=== PATIENT | male | born 1950 | race Caucasian/White ===

== ENCOUNTER 2016-10-30 05:04 | Inpatient (IN) | payer BC, OTHER ==
[2016-10-05 11:55] VITALS: BMI 28.0
--- NOTE | 2016-10-05 12:24 | PAT Medication Instructions ---
Service Date Oct 05, 2016. Current Home Medication List Aspirin (Aspirin *), 325 MG PO noon Atorvastatin (Lipitor), 10 MG PO HS Cholecalciferol (Vitamin D3), 1 TAB PO QAM Finasteride (Proscar), 5 MG PO QAM Lisinopril (Prinivil), 10 MG PO QAM Meloxicam (Mobic), 7.5 MG PO QAM Multivitamin (Multivitamin), 1 TAB PO QAM Sildenafil Citrate (Viagra), 100 MG PO PRN Medication Instructions For Your Scheduled Surgery - Check with surgeon for instructions: Aspirin (Aspirin *), 325 MG PO noon Meloxicam (Mobic), 7.5 MG PO QAM - Hold the following medications the morning of surgery: Sildenafil Citrate (Viagra), 100 MG PO PRN Multivitamin (Multivitamin), 1 TAB PO QAM Finasteride (Proscar), 5 MG PO QAM Lisinopril (Prinivil), 10 MG PO QAM Cholecalciferol (Vitamin D3), 1 TAB PO QAM - Take the following medications as scheduled the night before surgery: Sildenafil Citrate (Viagra), 100 MG PO PRN Atorvastatin (Lipitor), 10 MG PO HS If you have any questions please call us at [phone] or [phone] or [phone]
--- NOTE | 2016-10-05 12:47 | DIAGNOSTIC IMAGING REPORT ---
CHEST PREADMISSION(PA/LAT) CLINICAL HISTORY: 66 years-old Male presenting with preoperative chest x-ray. TECHNIQUE: PA and lateral views of the chest were obtained. COMPARISON: 06/09/2013. FINDINGS: Cardiomediastinal silhouette normal. Lungs and pleural spaces clear. Osseous structures normal. Cholecystectomy clips noted. IMPRESSION: 1. No acute cardiopulmonary disease. Electronically signed by: Michael Saleem M.D. 10/05/2016 12:45 PM Dictated Date/Time: 10/05/2016 12:45 PM
[2016-10-05 12:54] LABS: BASO % 0.2 %; BASO ABS # 0.02 K/uL (0-0.2); COMPLETE YES; EOS % 2.2 %; HEMATOCRIT 44.8 % (42-52); IG% 0.2 %; LYMPH % 28.5 %; LYMPH ABS # 2.68 K/uL (1.2-3.4); MEAN CELL VOLUME 82.2 fL (80-100); MEAN CORPUSCULAR HEMOGLOBIN 28.4 pg (25-34); MEAN CORPUSCULAR HGB CONC 34.6 g/dl (32-36); MEAN PLATELET VOLUME 9.6 fL (7.4-10.4); MONO % 8.2 %; NEUT % 60.7 %; PLATELET COUNT 230 K/uL (130-400); RED BLOOD COUNT 5.45 M/uL (4.7-6.1)
[2016-10-05 12:57] LABS: ESTIMATED AVERAGE GLUCOSE 97 mg/dl; HA1C FLAG Normal (Normal)
[2016-10-05 13:00] LABS: BUN/CREATININE RATIO 14.1 (10-20); CALCIUM 9.9 mg/dl (8.5-10.1); CREATININE 0.83 mg/dl (0.60-1.40); POTASSIUM 4.2 mmol/L (3.5-5.1)
[2016-10-05 13:04] LABS: URINE APPEARANCE CLEAR (CLEAR); URINE BILIRUBIN NEG (NEG); URINE COLOR YELLOW; URINE NITRITE NEG (NEG); URINE SPECIFIC GRAVITY 1.017 (1.000-1.030); UROBILINOGEN NEG (NEG)
[2016-10-05 13:12] LABS: PARTIAL THROMBOPLASTIN RATIO 1.1; PROTHROMBIN TIME (PATIENT) 10.8 SECONDS (9.0-12.0)
[2016-10-05 13:29] LABS: MANUAL MICROSCOPIC REQUIRED? NO; REVIEW REQ? NO
--- NOTE | 2016-10-28 16:51 | History and Physical ---
History & Physical Date Oct 28, 2016. Chief Complaint Left Knee Pain History of Present Illness The patient is a 66 year old male with complaints of Left knee pain. He states it has been going on for some time now. He describes the pain as constant dull ache that is sharp at times. He has tried conservative measures of NSAIDs, cortisone injections and PT with no relief. He would like to proceed with a left TKA. Past Medical/Surgical History PMHx: (1) Hypertension (2) H/O TIA (3) Osteoarthritis (4) GERD PSHx: (1) Cholecystectomy (2) Hernia repair (3) Neck surgery Additional History Hepatic Disease: No Endocrine Disorder: No Kidney Disease: No Hypertension: Yes Heart Disease: No Bleeding Tendencies: No Infectious Diseases: No Allergies Coded Allergies: No Known Drug Allergy (Verified Allergy, Unknown, `, 10/05/16) Home Medications Scheduled Aspirin (Aspirin *), 325 MG PO noon Atorvastatin (Lipitor), 10 MG PO HS Cholecalciferol (Vitamin D3), 1 TAB PO QAM Finasteride (Proscar), 5 MG PO QAM Lisinopril (Prinivil), 10 MG PO QAM Meloxicam (Mobic), 7.5 MG PO QAM Multivitamin (Multivitamin), 1 TAB PO QAM Sildenafil Citrate (Viagra), 100 MG PO PRN Physical Examination Skin: warm/dry, no rash Eyes: normal inspection, EOMI ENT: normal ENT inspection Head: normocephalic, atraumatic Neck: supple, no adenopathy Respiratory/Chest: lungs clear, normal breath sounds Cardiovascular: regular rate, rhythm, no murmur Abdomen / GI: normal bowel sounds, non tender Extremities: normal inspection, + pertinent finding (0-90 degrees ROM. Anterior and medial left knee pain, ligaments intact. ) Neurologic/Psych: alert, oriented x 3 Diagnosis Primary osteoarthritis of left knee Plan of Treatment Patient is scheduled for a left total knee arthroplasty. He has failed conservative therapies that include NSAIDs, PT, and cortisone injections. He would like to proceed with a left total knee arthroplasty. Risks and benefits to surgery were discussed that include but not limited to Pain, DVT, stiffness, Needed for revision surgery, blood loss, blood vessel damage, infection, nerve damage, anesthesia risks, and . He understands these risks and wishes to proceed. All questions were answered to his satisfaction. DVT prophylaxis - ASA 81mg BID Discharge Home with home health.
[~2016-10-30] VITALS: Ht 177.8 cm; Wt 89.5 kg
[2016-10-30] VITALS (10 sets, daily range): BP systolic 107–143; BP diastolic 71–90; PULSE 79–96; TEMP 36.3–36.7; O2SAT 93–97; Ht 177.8 cm; Wt 89.5 kg
[~2016-10-30 05:04] MED LIST: ASPEC325 PO; ATOR10TA88 PO; CHOL1000 PO; FINA5TAB PO; LISI10TA PO; MELO7.5T5 PO; MULT-506 PO; SILD100T PO
[2016-10-30] MEDS ORDERED: ACETAMINOPHEN 500 MG TAB PO SCH (06:00)
[2016-10-30] MEDS ORDERED: LACTATED RINGER'S 1000ML 1,000 ML IV SCH (06:00)
[2016-10-30] MEDS ORDERED: LACTATED RINGER'S 1000ML 500 ML IV SCH (06:00)
[2016-10-30] MEDS ORDERED: LACTATED RINGER'S 1000ML IV SCH (06:00)
[2016-10-30] MEDS ORDERED: CEFAZOLIN 2000 MG/60 ML D5W 60 ML IV SCH (06:00)
[2016-10-30] MEDS ORDERED: ROPIVACAINE 5MG/ML 30 ML 150 MG, BUPIVACAINE/EPINEPHR 0.5% MPF 30 ML, KETOROLAC TROMETH... INFIL SCH ×7 (06:00)
[2016-10-30] MEDS ORDERED: FAMOTIDINE 20 MG TAB PO SCH (06:00)
[2016-10-30] MEDS ORDERED: GABAPENTIN 300 MG CAP PO SCH (06:00)
[2016-10-30] MEDS ORDERED: METOCLOPRAMIDE HCL 10 MG TAB PO SCH (06:00)
[2016-10-30] MEDS ORDERED: CeleBREX 200 MG CAP PO SCH (06:00)
[2016-10-30] MEDS ORDERED: CEFAZOLIN 2000 MG/60 ML D5W IV SCH (06:00)
[2016-10-30] MEDS ORDERED: DEXAMETHASONE 4 MG TAB PO SCH (06:00)
[2016-10-30] MEDS ORDERED: BUPIVACAINE 0.5 % 5 MG/1 ML PF 10ML VIAL ONE (06:22)
[2016-10-30] MEDS: TRANEXAMIC ACID INJ 1,000 MG in SODIUM CHLORIDE 0.9% 100ML 100 ML IV SCH ×2 (06:30→07:00)
[2016-10-30] MEDS ORDERED: BACITRACIN 50000 UNIT VIAL ONE (06:32)
[2016-10-30] MEDS ORDERED: ORTHO JOINT ANESTHETIC ONE (06:32)
[2016-10-30] MEDS ORDERED: POVIDONE-IODINE OP SOLN 30 ML BTL ONE (06:32)
[2016-10-30] MEDS ORDERED: MIDAZOLAM HCL 1 MG/ML 2ML VIAL ONE (06:38)
[2016-10-30] MEDS ORDERED: EpHEDrine SULFATE INJ 50 MG/ML AMP IV PRN (06:45)
[2016-10-30] MEDS ORDERED: ONDANSETRON INJ 2 MG/ML 2 ML VIAL IV PRN ×2 (06:45→09:45)
[2016-10-30] MEDS ORDERED: ATROPINE SULFATE 0.1 MG/ML 5ML SYR IV PRN (06:45)
[2016-10-30] MEDS ORDERED: FENTANYL CITRATE INJ 50 MCG/1 ML 2 ML VIAL IV PRN (06:45)
--- NOTE | 2016-10-30 06:56 | History & Physical Bridge Note ---
H&P Re-Evaluation Bridge Note: I have examined the patient, reviewed the History & Physical and in the interval since the performance of the History & Physical I have noted the following changes of clinical significance: No changes noted
[2016-10-30] MEDS ORDERED: KETAMINE HCL INJ 50 MG/ML 10 ML VIAL ONE (07:29)
[2016-10-30] MEDS ORDERED: LIDOCAINE HCL 2% 2 ML VIAL (20MG/ML) ONE (07:31)
[2016-10-30] MEDS ORDERED: PROPOFOL IV EMULSION 10 MG/ML 20 ML VIAL IV ONE ×3 (07:31→08:23)
[2016-10-30] MEDS ORDERED: SODIUM CHLORIDE 0.9% INJ 10 ML VIAL ONE (07:31)
[2016-10-30] MEDS ORDERED: GLYCOPYRROLATE INJ 0.2 MG/ML VIAL ONE (08:13)
[2016-10-30] MEDS ORDERED: NON-FORMULARY MEDICATION (Sildenafil Citrate (Viagra) 100 MG) PO SCH (09:45)
[2016-10-30] MEDS ORDERED: OXYCODONE HCL IR 5 MG TAB (IMMEDIATE RELEASE) PO PRN (09:45)
[2016-10-30] MEDS ORDERED: BISACODYL 10 MG SUPP PR PRN (09:45)
[2016-10-30] MEDS ORDERED: ZOLPIDEM TARTRATE 5 MG TAB PO PRN (09:45)
[2016-10-30] MEDS ORDERED: SOD PHOSPHATE/SOD BIPHOSPHATE ENEMA 132 ML BTL PR PRN (09:45)
[2016-10-30] MEDS ORDERED: MoRPHine SULFATE 2 MG/ML CARP IV PRN (09:45)
[2016-10-30] MEDS ORDERED: ALUMINUM/MAGNESIUM/SIMETH (MAALOX MAX) 30 ML UDC PO PRN (09:45)
[2016-10-30] MEDS ORDERED: MAGNESIUM HYDROXIDE SUSP 30 ML UDC PO PRN (09:45)
--- NOTE | 2016-10-30 10:07 | DIAGNOSTIC IMAGING REPORT ---
LEFT KNEE 1 OR 2 VIEWS ROUTINE HISTORY: 66 years-old Male AP/LATERAL IN PACU LEFT KNEE status post left knee arthroplasty. COMPARISON: None available. TECHNIQUE: Frontal and lateral views of the left knee FINDINGS: There has been recent left knee total joint arthroplasty with patellar resurfacing. There is no periprosthetic fracture or malalignment identified. Bones appear intact. Surgical drain with expected postsurgical soft tissue swelling and deep tissue air noted. IMPRESSION: Status post left total knee arthroplasty and patellar resurfacing without complication. The above report was generated using voice recognition software. It may contain grammatical, syntax or spelling errors. Electronically signed by: Carlton Singleton M.D. 10/30/2016 10:06 AM Dictated Date/Time: 10/30/2016 10:05 AM
--- NOTE | 2016-10-30 11:56 | Anesthesiology Progress Note ---
Anesthesia Post Op Note Date & Time Oct 30, 2016 at 11:56 Vital Signs Pain Intensity: 0.0 Vital Signs Past 12 Hours Date Time Temp Pulse Resp B/P (MAP) Pulse Ox O2 Delivery O2 Flow Rate FiO2 10/30/16 11:54 36.7 96 16 118/79 (92) 97 Nasal Cannula 2.0 10/30/16 11:30 Nasal Cannula 2.0 10/30/16 11:30 Nasal Cannula 2.0 10/30/16 11:00 36.4 87 16 113/71 (85) 95 Nasal Cannula 2.0 10/30/16 10:40 89 16 107/71 98 Nasal Cannula 2 10/30/16 10:30 36.3 93 16 109/72 98 Nasal Cannula 2 10/30/16 10:20 85 18 107/67 97 Nasal Cannula 2 10/30/16 10:10 84 18 108/70 97 Nasal Cannula 2 10/30/16 10:00 89 16 107/72 97 Nasal Cannula 2 10/30/16 09:50 88 16 106/69 99 Nasal Cannula 2 10/30/16 09:40 87 16 102/77 99 Oxymask 10 10/30/16 09:32 36.6 91 16 109/72 96 Oxymask 10 10/30/16 06:00 36.6 80 18 140/90 96 Room Air Notes Mental Status: alert / awake / arousable, participated in evaluation Pt Amnestic to Procedure: Yes Nausea / Vomiting: adequately controlled Pain: adequately controlled Airway Patency, RR, SpO2: stable & adequate BP & HR: stable & adequate Hydration State: stable & adequate Neuraxial Anesthesia: was administered, sensory block is resolving Anesthetic Complications: no major complications apparent
[2016-10-30] MEDS: FERROUS GLUCONATE 324 MG TAB PO SCH ×2 (13:20→17:33)
[2016-10-30] MEDS: D5W AND 1/2NSS + 20MEQ KCL 1,000 ML IV SCH ×2 (13:20→22:42)
[2016-10-30] MEDS: ACETAMINOPHEN 500 MG TAB PO SCH ×2 (13:21→21:37)
[2016-10-30] MEDS: CEFAZOLIN IV 2,000 MG in DEXTROSE 5% 50ML 50 ML IV SCH ×2 (16:24→23:40)
--- NOTE | 2016-10-30 17:34 | [facility] Operative Report ---
Operative Report Operative Date Oct 30, 2016. Pre-Operative Diagnosis Osteoarthritis of left knee Post-Operative Diagnosis Osteoarthritis of left knee Procedure(s) Performed Left Total Knee Arthroplasty Cemented Surgeon Dr. Barnett Inflated Ball Molder Surgeon(s) Leonard Belcher PA-C Estimated Blood Loss 50 ML Findings As above Specimens A: Left knee bone and tissue Drains none Anesthesia spinal Complication(s) None Disposition Recovery Room / PACU Indications 66-year-old male long-standing pain and degenerative change in the left knee. He is [id number] medial compartment. His fell conservative measures including injection anti-inflammatories and rehabilitation. He wishes to proceed with a total knee arthroplasty. Description of Procedure Risks benefits and alternatives of surgery including but not limited to infection DVT pain stiffness need for surgery damage to blood vessels damage to nerves or risks of anesthesia were discussed with the patient and she wished to proceed. Patient was identified in the laterality was confirmed and marked. She received a preoperative antibiotic is also a spinal anesthetic and a abductor canal block. A well-padded tourniquet was applied and then the limb was prepped and draped in standard manner with ChloraPrep. The limb was exsanguinated and the tourniquet was inflated. I made a standard anterior incision. I sharply incised the skin then utilized Bovie electrocautery as well as the aqua mantis to achieve hemostasis. I made a medial parapatellar arthrotomy immobilized the patella laterally. I then excised the anterior horns of the medial and lateral meniscus as well as the infrapatellar fat pad. I elevated a portion of the MCL off of the tibia. I then pinned into place a patient-matched distal femoral cutting guide and made my distal femoral resection. I then pinned into place a size the 5 in 1 cutting guide. I made my anterior, posterior and chamfer cuts. I then excised the cruciates and the remaining portions of the menisci. I then pinned into place a patient- matched tibial cutting guide and made my tibial resection. I then pinned into place a size the trial tibia utilizing an alignment ally to confirm rotation. I then cut for the post. Utilizing a lamina director data processing and then removed posterior osteophytes off the femur. I then placed a trial femur into position and cut for the trochlear component. I then sequentially trialed the polyethylene. There was good soft tissue balancing and range of motion with this polyethylene. I then prepared the patella with a freehand cut utilizing sagittal saw. I sized and drilled for the patella. [There was good tracking to the patella. No lateral release was needed.] All the trial components were removed. The deep tissues were anesthetized with and ortho mix solution. Then with Simplex HV with gentamicin cement I cemented my definitive components. Definitive components, Haddad and Nephew Johny 2: Femur 6 Tibia 6 Poly [9] Patella 32 oval A Betadine soak was performed. The arthrotomy was closed with interrupted #1 Vicryl suture subcutaneous tissue was closed with interrupted 2-0 Vicryl suture. The skin was closed with [Prineo]. Sterile dressings applied and the tourniquet was released. All needle and sponge counts were correct at the end of the procedure patient was transferred to the PACU in stable condition without apparent complication. The PA-C was necessary for assistance with procedure for assistance in positioning, prepping, draping, retraction and closure. I attest to the content of the Intraoperative Record and any orders documented therein. Any exceptions are noted below.
[2016-10-30] MEDS ORDERED: ATORVASTATIN 10 MG TAB PO SCH (21:00)
[2016-10-30] MEDS ORDERED: SENNA 8.6 MG TAB PO SCH (21:00)
[2016-10-30] MEDS: CeleBREX 200 MG CAP PO SCH (21:35)
[2016-10-30] MEDS: ASPIRIN 81 MG ECTAB PO SCH (21:36)
[2016-10-30] MEDS: DOCUSATE SODIUM 100 MG CAP PO SCH (21:36)
[2016-10-30] MEDS: OXYCODONE HCL 10 MG TABCR (OXYCONTIN) PO SCH (21:38)
[2016-10-31 03:20] VITALS: BP 123/75; PULSE 77; TEMP 36.3; O2SAT 97
[2016-10-31] MEDS: ACETAMINOPHEN 500 MG TAB PO SCH (05:33)
[2016-10-31 06:00] LABS: HEMATOCRIT 39.5 % (42-52); MEAN CELL VOLUME 82.1 fL (80-100); MEAN CORPUSCULAR HEMOGLOBIN 27.7 pg (25-34); MEAN CORPUSCULAR HGB CONC 33.7 g/dl (32-36); MEAN PLATELET VOLUME 9.3 fL (7.4-10.4); PLATELET COUNT 240 K/uL (130-400); RED BLOOD COUNT 4.81 M/uL (4.7-6.1); WHITE BLOOD COUNT 21.05 K/uL (4.8-10.8)
[2016-10-31 06:09] LABS: INR 1.1 (0.9-1.1); PROTHROMBIN TIME (PATIENT) 11.7 SECONDS (9.0-12.0)
[2016-10-31 06:36] LABS: BUN/CREATININE RATIO 12.9 (10-20); CALCIUM 9.4 mg/dl (8.5-10.1); CREATININE 0.83 mg/dl (0.60-1.40); POTASSIUM 4.2 mmol/L (3.5-5.1)
[2016-10-31 07:22] VITALS: BP 126/78; PULSE 69; TEMP 36.7; O2SAT 96
[2016-10-31] MEDS: D5W AND 1/2NSS + 20MEQ KCL 1,000 ML IV SCH (08:45)
[2016-10-31] MEDS ORDERED: MULTIVITAMIN TAB PO SCH ×2 (09:00)
[2016-10-31] MEDS ORDERED: PANTOprazole SOD 40 MG TAB PO SCH (09:00)
[2016-10-31] MEDS ORDERED: LISINOPRIL 10 MG TAB PO SCH (09:00)
[2016-10-31] MEDS ORDERED: FINASTERIDE 5 MG TAB PO SCH (09:00)
[2016-10-31] MEDS: FERROUS GLUCONATE 324 MG TAB PO SCH ×2 (09:12→12:20)
[2016-10-31] MEDS: ASPIRIN 81 MG ECTAB PO SCH (09:12)
[2016-10-31] MEDS: CeleBREX 200 MG CAP PO SCH (09:13)
[2016-10-31] MEDS: DOCUSATE SODIUM 100 MG CAP PO SCH (09:13)
[2016-10-31] MEDS: OXYCODONE HCL 10 MG TABCR (OXYCONTIN) PO SCH (09:19)
--- NOTE | 2016-10-31 10:18 | Orthopedic Progress Note ---
Orthopedic Progress Note Date of Service Oct 31, 2016. Subjective Post OP Day: 1 Reports: feeling well, Denies: complaints Additional Notes: Hoping to go home today. Objective calves soft nontender, N/V intact, dressing C/D/I, A&O x3, toes mobile Date Time Temp Pulse Resp B/P (MAP) Pulse Ox O2 Delivery O2 Flow Rate FiO2 10/31/16 07:45 Room Air 10/31/16 07:22 36.7 69 17 126/78 (94) 96 Room Air 10/31/16 03:20 36.3 77 16 123/75 (91) 97 Room Air 10/30/16 23:30 Room Air 10/30/16 23:20 36.6 79 16 113/72 (86) 93 Room Air 10/30/16 20:05 36.4 89 16 125/76 (92) 94 Room Air 10/30/16 16:12 95 Room Air 10/30/16 16:10 Room Air 10/30/16 15:37 36.3 81 16 117/77 (90) 96 Nasal Cannula 2.0 10/30/16 14:00 86 16 118/82 (94) 93 Nasal Cannula 2.0 10/30/16 13:01 36.4 96 17 143/84 (103) 97 Nasal Cannula 2.0 10/30/16 11:54 36.7 96 16 118/79 (92) 97 Nasal Cannula 2.0 10/30/16 11:30 Nasal Cannula 2.0 10/30/16 11:30 Nasal Cannula 2.0 10/30/16 11:30 36.3 90 16 107/72 (84) 97 Nasal Cannula 2.0 10/30/16 11:00 36.4 87 16 113/71 (85) 95 Nasal Cannula 2.0 10/30/16 10:40 89 16 107/71 98 Nasal Cannula 2 10/30/16 10:30 36.3 93 16 109/72 98 Nasal Cannula 2 10/30/16 10:20 85 18 107/67 97 Nasal Cannula 2 Laboratory Results 24 Hours: Test 10/31/16 05:44 Hematocrit 39.5 % Hemoglobin 13.3 g/dL Prothromb Time International Ratio 1.1 Prothrombin Time 11.7 SECONDS Assessment & Plan Assessment: POD 1 s/p Left TKA Plan: PT/OT Planning on HH Services upon DC Possible dc home today if progressing well Inhouse Planning Pain Management: Celebrex, Oxycontin, PO Tylenol, Oxy IR DVT Prophylaxis: TEDs, SCDs, ASA Discharge Planning Discharge Planning: home with home health
[2016-10-31] MEDS ORDERED: CLB200 PO (10:21)
[2016-10-31] MEDS ORDERED: SNK PO (10:21)
[2016-10-31] MEDS ORDERED: ACET-24 PO (10:21)
[2016-10-31] MEDS ORDERED: RXC5 PO (10:21)
[2016-10-31] MEDS ORDERED: OXYSR10 PO (10:21)
[2016-10-31] MEDS ORDERED: ASPEC81 PO (10:21)
--- NOTE | 2016-10-31 10:27 | Discharge Instructions ---
Discharge Instructions Date of Service Oct 31, 2016. Admission Reason for Admission: Left Knee Osteoarthritis Discharge Discharge Diagnosis / Problem: Left Knee Djd Discharge Goals Goal(s): Decrease discomfort, Improve function Activity Recommendations Activity Limitations: per Instructions/Follow-up section Weightbearing Status: Left weightbearing (as tolerated) . Instructions / Follow-Up Instructions / Follow-Up ACTIVITY RECOMMENDATIONS: SELF CARE INSTRUCTIONS AFTER TOTAL KNEE REPLACEMENT A. You may need to continue a physical therapy program after discharge from the hospital. There are several options available to you. Your doctor will assist you in selecting the best one for you. 1. An out-patient facility 2 to 3 times a week for therapy or home therapy. 2. Continue working on all exercises taught to you in the hospital. Your goals should be to increase bending of your knee to 90 degrees and beyond and to fully straighten your knee. B. You may progress at your own pace from walking with a walker or crutches to a cane; then to no assistive devices. C. Make walking a part of your daily routine. Be up as much as comfortable with rest periods throughout the day. Rest with leg elevation is very important. Use the ice wrap frequently for the first 3-4 weeks. D. There are no restrictions on activities. You may ride in a car, shop, participate in manual machinist and all social activities. E. Wear the long elastic stockings (STORMY hose) 20 hours a day for 2 weeks after surgery. They can be removed several times a day for laundering and for a bath. F. You may shower, no tub baths until cleared by your doctor. SPECIAL CARE INSTRUCTIONS: VERY IMPORTANT TO READ AND REVIEW A. There are a few signs you need to watch for after you are home. Call [facility] if you notice any of the followin. Increased severe knee pain. Some pain is expected especially when you exercise. 2. Increased swelling in your leg or knee; pain or swelling of the calf muscle in either lower leg. 3. Any fluid drainage from the incision. 4. Shortness of breath or chest pain. B. Please call [facility] at if you have any concerns or questions about your operation or recovery. The doctor or his nurse will return your call promptly. C. You must take antibiotics before dental work, bladder, bowel or other surgery. Your doctor will provide you with a permanent care to carry describing this precaution. IMPORTANT: * REMEMBER TO TAKE ASPIRIN, 81 MG, TWICE DAILY FOR 4 WEEKS UNLESS OTHERWISE DIRECTED. THIS IS YOUR BLOOD THINNER. * HIGH RISK PATIENTS MAY BE PRESCRIBED A STRONGER BLOOD THINNER. THIS WILL BE PROVIDED AT DISCHARGE. * CALL IF INCREASED PAIN, REDNESS, DRAINAGE OR FEVER GREATER THAT 101. * WEAR STORMY HOSE 20 HOURS PER DAY FOR 2 WEEKS. * DERMABOND Prineo- This is a mesh tape dressing that is covered with glue. It should remain in place until the incision is properly healed, usually 10-14 days. This dressing is designed to naturally slough off. You may trim the excess mesh tape as it peels off. Incision may be briefly wet in a shower. Dry immediately by blotting with a clean, dry towel. Do not bath or swim until instructed by your doctor. Do not scratch, rub, or pick at the dressing. Do not apply any topical ointments or lotions until dressing is completely removed and/or instructed by your doctor. There may be a small piece of suture material at one end of your incision. Do not pull or trim this. If it is bothersome or catching on clothing, you may cover it with a band-aid. . FOLLOW UP VISIT: If appointment is not already scheduled: Please call [facility] to make a follow-up appointment for 2 weeks after your surgery at . Current Hospital Diet Patient's current hospital diet: Regular Diet Discharge Diet Recommended Diet: Regular Diet Procedures Procedures Performed: Left Total Knee Arthroplasty Cemented Pending Studies Studies pending at discharge: no Laboratory Results Hemoglobin A1c Test 10/05/16 11:45 Range/Units Estimated Average Glucose 97 mg/dl Hemoglobin A1c 5.0 4.5-5.6 % Medical Emergencies . Who to Call and When: Medical Emergencies: If at any time you feel your situation is an emergency, please call 911 immediately. . Non-Emergent Contact Non-Emergency issues call your: Surgeon Call Non-Emergent contact if: temperature is above 101.5, your pain is not controlled, your pain is worsening, wound has increased drainage, wound has increased redness . "Provider Documentation" section prepared by Darren Martinez. . VTE Core Measure Inpt VTE Proph given/why not?: Other Anticoagulation, T.E.D. Stockings, SCD's [place] Drug Monitoring Program Search Results: patient reviewed within database, no issues identified
[2016-10-31 10:31] VITALS: BP 126/78; PULSE 69; TEMP 36.7; O2SAT 96
--- NOTE | 2016-11-03 09:07 | Discharge Summary ---
Orthopedic Discharge Summary Admission Date/Reason Oct 30, 2016 at 06:50 Left Knee Osteoarthritis. Discharge Date/Disposition Oct 31, 2016 Home with services Diagnosis Principal Diagnosis: S/P Left TKA Medication Reconciliation as per discharge instructions Admission Physical Exam As per Admitting History & Physical. Hospital Course POD #1 patient is doing well with minimal pain. Her dressing was clean, dry and intact. Her plan was to go home with home health services today if doing well with PT. Discharge Instructions Please refer to the electronic Patient Visit Report (Discharge Instructions) for additional information.
== END 2016-10-31 12:20 | disposition home health service (06) | DRG 470 ==
LOC: C.ACU 05:04 → C.3E 06:50 → ENRESERV 10:08
PROVIDERS: ADMIT Orthopaedic Surgery; ATTEND Orthopaedic Surgery
PROC: 0SRD0J9 Replacement of Left Knee Joint with Synthetic Substitute, Cemented, Open Approach (ICD-10-PCS; principal; 2016-10-30 07:00)
DX: M17.12 Unilateral primary osteoarthritis, left knee (principal); I10 Essential (primary) hypertension; Z79.899 Other long term (current) drug therapy; Z79.82 Long term (current) use of aspirin; Z86.73 Personal history of transient ischemic attack (TIA), and cerebral infarction without residual deficits

== ENCOUNTER → 2017-06-22 | Outpatient (CLI) | payer BC ==
[~2017-06-22] MED LIST changes: +ACET-24 PO; -ASPEC325 PO; +ASPI-320 PO; +ASPI81TA28 PO; +ATOR10TA82 PO; -ATOR10TA88 PO; +CLB200 PO; +EFIN1SOL; +OXYSR10 PO; +RXC5 PO; +SILD50TA52 PO; +SNK PO
[2017-06-22 09:56] LABS: ALBUMIN 3.8 gm/dl (3.4-5.0); ALT/SGPT 35 U/L (12-78); AST/SGOT 16 U/L (15-37); BLOOD UREA NITROGEN 17 mg/dl (7-18); CALCIUM 9.3 mg/dl (8.5-10.1); CARBON DIOXIDE 27 mmol/L (21-32); CHOLESTEROL 142 mg/dl (0-200); CREATININE 0.86 mg/dl (0.60-1.40); GLUCOSE 93 mg/dl (70-99); POTASSIUM 4.2 mmol/L (3.5-5.1); SODIUM 141 mmol/L (136-145)
[2017-06-22 10:08] LABS: ALKALINE PHOSPHATASE 82 U/L (45-117); LDL CHOLESTEROL CALCULATED 82 mg/dl
== END | disposition home or self-care (01) ==
LOC: C.LAB 07:43
PROVIDERS: ATTEND Urology
DX: R97.20 Elevated prostate specific antigen [PSA] (principal); I10 Essential (primary) hypertension; M19.90 Unspecified osteoarthritis, unspecified site; N40.1 Benign prostatic hyperplasia with lower urinary tract symptoms

== ENCOUNTER → 2017-06-24 | Outpatient (CLI) | payer BC ==
[~2017-06-24] MED LIST changes: -ACET-24 PO; -ASPI-320 PO; -CLB200 PO; -OXYSR10 PO; -RXC5 PO; -SILD100T PO; -SNK PO
== END | disposition home or self-care (01) ==
LOC: C.LABBC 10:03
PROVIDERS: ATTEND Internal Medicine Geriatric Medicine
DX: M25.50 Pain in unspecified joint (principal)

== ENCOUNTER → 2017-07-07 | Day surgery (SDC) | payer BC ==
[2016-10-05 14:03] VITALS: BMI 28.0
[2017-06-23 13:22] VITALS: Ht 177.8 cm; Wt 89.5 kg
[~2017-07-07] VITALS: Ht 177.8 cm; Wt 89.5 kg
[~2017-07-07] MED LIST changes: +FENTANYL CITRATE INJ 50 MCG/1 ML 2 ML VIAL ONE; +LIDOCAINE HCL 2% 2 ML VIAL (20MG/ML) ONE; +MIDAZOLAM HCL 1 MG/ML 2ML VIAL ONE; +PROPOFOL IV EMULSION 10 MG/ML 20 ML VIAL ONE; +SODIUM CHLORIDE 0.9% 500ML 500 ML IV ONE
--- NOTE | 2017-07-07 14:23 | Endo History and Physical ---
History & Physical Date of Service: July 07, 2017. Chief Complaint: Screening Referring Physician: Dr Fitz Jones History of Present Illness 66 yo CM who presents for screening colonoscopy. Past Medical History Arthritis, Male Genitourinary Prob., High Cholesterol, Hypertension, CVA/TIA Past Surgical History Hx Cardiac Surgery: No Hx Internal Defibrillator: No Hx Pacemaker: No Hx Abdominal Surgery: Yes (CHOLECYSTECTOMY, EXPLORATORY LAP, HERNIA REPAIR) Hx Post-Op Nausea and Vomiting: No Hx Cancer Surgery: No Hx Thoracic Surgery: No Hx Orthopedic: Yes (NECK SURGERY) Hx Urinary Tract Surgery: Yes (PROSTATE BIOPSY) Family History None Social History Smoking Status: Never Smoker Hx Substance Use: No Hx Alcohol Use: Yes (HARDLY) Allergies Coded Allergies: No Known Drug Allergy (Verified Allergy, Unknown, `, 07/07/17) Current Medications Reported Home Medications Medications Dose Route/Sig Max Daily Dose Days Date Category Jublia (Efinaconazole) 10 % Flora DIRECTED 06/23/17 Reported Sildenafil Citrate 50 Mg Tab 1 Tab PO DIRECTED 06/23/17 Reported Aspirin Ec (Aspirin) 81 Mg Tab 162 Mg PO DAILY 06/23/17 Reported Multivitamin (Multivitamins) Tab 1 Tab PO QAM 10/05/16 Reported Vitamin D3 (Cholecalciferol) 1,000 Unit Tab 1 Tab PO QAM 90 10/05/16 Reported Lipitor (Atorvastatin Calcium) 10 Mg Tab 10 Mg PO HS 10/05/16 Reported Proscar (Finasteride) 5 Mg Tab 5 Mg PO QAM 06/09/13 Reported Prinivil (Lisinopril) 10 Mg Tab 10 Mg PO QAM 11/19/10 Reported Vital Signs Weight (Kilograms): 89.50 Height (Feet): 5 Height (Inches): 10 Physical Exam General Appearance: WD/WN, no apparent distress Respiratory/Chest: Auscultation: breath sounds normal Cardiovascular: Heart Auscultation: RRR Abdomen: Bowel Sounds: normal Inspection & Palpation: soft, non-distended, no tenderness, guarding & rebound Assessment and Plan Assessment: 66 yo CM who presents for screening colonoscopy. Plan: Proceed with colonoscopy.
--- NOTE | 2017-07-07 14:56 | GI REPORT ---
Patient Name: Tyrone Casey Procedure Date: 07/07/2017 2:29 PM Date of : 1950 Admit Type: Outpatient Age: 66 Gender: Male Attending MD: Lazaro Ackerman DO Procedure: Colonoscopy Providers: Lazaro Ackerman DO Referring MD: Fitz Jones Indications: Screening for colorectal malignant neoplasm Medicines: Monitored Anesthesia Care Complications: No immediate complications. Estimated Blood Loss: Estimated blood loss: none. Procedure: Pre-Anesthesia Assessment: - Prior to the procedure, a History and Physical was performed, and patient medications and allergies were reviewed. The patient's tolerance of previous anesthesia was also reviewed. The risks and benefits of the procedure and the sedation options and risks were discussed with the patient. All questions were answered, and informed consent was obtained. Prior Anticoagulants: The patient last took aspirin 6 days prior to the procedure. ASA Grade Assessment: III - A patient with severe systemic disease. After reviewing the risks and benefits, the patient was deemed in satisfactory condition to undergo the procedure. After I obtained informed consent, the scope was passed under direct vision. Throughout the procedure, the patient's blood pressure, pulse, and oxygen saturations were monitored continuously. The scope was introduced through the anus and advanced to the terminal ileum. The colonoscopy was performed without difficulty. The patient tolerated the procedure well. The quality of the bowel preparation was good. The terminal ileum, ileocecal valve, appendiceal orifice, and rectum were photographed. Findings: The perianal and digital rectal examinations were normal. Four sessile polyps were found in the rectum, sigmoid colon, ascending colon and cecum. The polyps were 5 to 9 mm in size. These polyps were removed with a hot snare. Resection was complete, but the polyp tissue was only partially retrieved. Non-bleeding internal hemorrhoids were found during retroflexion. The hemorrhoids were small. Impression: - Four 5 to 9 mm polyps in the rectum, in the sigmoid colon, in the ascending colon and in the cecum, removed with a hot snare. Complete resection. Partial retrieval. - Non-bleeding internal hemorrhoids. Recommendation: - Resume previous diet. - Continue present medications. - Repeat colonoscopy for surveillance based on pathology results. - Return to primary care physician as previously scheduled. Lazaro Ackerman DO 07/07/2017 2:56:16 PM This report has been signed electronically. Note Initiated On: 07/07/2017 2:29 PM Number of Addenda: 0 I attest to the content of the Intraoperative Record and orders documented therein, exceptions below {[id number]}
--- NOTE | 2017-07-07 15:01 | Discharge Instructions ---
Endoscopy Patient Instructions Date / Procedure(s) Performed July 07, 2017. Colonoscopy Allergy Information Coded Allergies: No Known Drug Allergy (Verified Allergy, Unknown, `, 07/07/17) Discharge Date / Findings July 07, 2017. Colon polyps Rectal polyp Internal hemorrhoids Medication Instructions Stopped Medication(s): ASA 81mg LD 07/04/17 OK to resume all medications today as prescribed Reported Home Medications Medications Dose Route/Sig Max Daily Dose Days Date Category Jublia (Efinaconazole) 10 % Flora DIRECTED 06/23/17 Reported Sildenafil Citrate 50 Mg Tab 1 Tab PO DIRECTED 06/23/17 Reported Aspirin Ec (Aspirin) 81 Mg Tab 162 Mg PO DAILY 06/23/17 Reported Multivitamin (Multivitamins) Tab 1 Tab PO QAM 10/05/16 Reported Vitamin D3 (Cholecalciferol) 1,000 Unit Tab 1 Tab PO QAM 90 10/05/16 Reported Lipitor (Atorvastatin Calcium) 10 Mg Tab 10 Mg PO HS 10/05/16 Reported Proscar (Finasteride) 5 Mg Tab 5 Mg PO QAM 06/09/13 Reported Prinivil (Lisinopril) 10 Mg Tab 10 Mg PO QAM 11/19/10 Reported Provider Instructions Activity Restrictions - No exercising or heavy lifting for 24 hours. - Do not drink alcohol the day of the procedure. - Do not drive a car or operate machinery until the day after the procedure. - Do not make any important decisions or sign important papers in 24 hours after the procedure. Following Day: - Return to full activity which may include returning to work/school. Diet Start your diet with liquids and light foods (jello, soup, juice, toast). Then eat your usual diet if not nauseated. Treatment For Common After Affects For mild abdominal pain, bloating, or excessive gas: - Rest - Eat lightly - Lie on right side Follow-Up Information Follow-up with Dr Fitz Jones as scheduled Anesthesia Information What You Should Know You have had a procedure that required some medicine to reduce anxiety and discomfort. This treatment is called moderate sedation. After receiving the treatment, you may be sleepy, but you will be able to breathe on your own. The effects of the treatment may last for several hours. Follow these instructions along with Activity/Diet recommendations noted above: * Do NOT do anything where dizziness or clumsiness would be dangerous. * Rest quietly at home today, then you can be up and about tomorrow. * Have a responsible person stay with you the rest of today. * You may have had an I.V. today. If so, you may take the dressing off later today. Recommendations Call your doctor if: * Trouble breathing * Continuous vomiting for more than 24 hours * Temperature above 101 degrees * Severe abdominal pain or bloating * Pain not relieved by pain medicine ordered * There is increased drainage or redness from any incision * A large amount of rectal bleeding greater than 2-3 tablespoons. (If you had a polyp/s removed or have hemorrhoids, a small amount of blood - from the rectum is to be expected.) * You have any unanswered questions or concerns. IN THE EVENT OF A SERIOUS EMERGENCY, GO TO THE NEAREST EMERGENCY ROOM Your discharge instructions were prepared by provider Lazaro Ackerman. Patient Instructions Signature Page Tyrone Casey Patient (or Guardian) Signature/Date: I have read and understand the instructions given to me by my caregivers. Caregiver/RN/Doctor Signature/Date: The above-named patient and/or guardian has received patient instructions on this date. + Original Patient Signature Page (only) stays with chart. Please make copy for patient.
--- NOTE | 2017-07-07 15:05 | Anesthesiology Progress Note ---
Anesthesia Post Op Note Date & Time July 07, 2017 at 15:05 Vital Signs Vital Signs Past 12 Hours Date Time Temp Pulse Resp B/P (MAP) Pulse Ox O2 Delivery O2 Flow Rate FiO2 07/07/17 14:21 36.8 94 18 133/95 (108) 95 Room Air Notes Mental Status: alert / awake / arousable, participated in evaluation Pt Amnestic to Procedure: Yes Nausea / Vomiting: adequately controlled Pain: adequately controlled Airway Patency, RR, SpO2: stable & adequate BP & HR: stable & adequate Hydration State: stable & adequate Anesthetic Complications: no major complications apparent The patient is awake and stable.
[2017-07-07 15:30] VITALS: BP 117/71; PULSE 74; O2SAT 98
== END | disposition home or self-care (01) ==
LOC: C.GI 13:37
PROVIDERS: ATTEND Internal Medicine
DX: Z12.11 Encounter for screening for malignant neoplasm of colon (principal); D12.2 Benign neoplasm of ascending colon; D12.8 Benign neoplasm of rectum; D12.0 Benign neoplasm of cecum; K64.8 Other hemorrhoids

== ENCOUNTER 2018-12-22 05:23 | Inpatient (IN) ==
--- NOTE | 2018-11-17 16:22 | PAT Medication Instructions ---
Medication Instructions Date of Service November 17, 2018 Home Medications Medication Instructions Recorded cholecalciferol (vitamin D3) 1,000 1,000 units PO DAILY #30 cap 07/29/18 unit capsule sildenafil (antihypertensive) 20 20 mg PO DAILY PRN #90 tab MDD 5 07/29/18 mg tablet TABS efinaconazole 10 % topical 10 % TOPICAL DAILY PRN #4 ml 08/01/18 solution with applicator cholecalciferol (vitamin D3) 1,000 unit capsule 1,000 units PO DAILY sildenafil (antihypertensive) 20 mg tablet 20 mg PO DAILY PRN efinaconazole 10 % topical solution with applicator 10 % TOPICAL DAILY PRN multivitamin tablet 1 tab PO DAILY aspirin 325 mg PO DAILY celecoxib 100 mg PO BID finasteride 5 mg PO QAM lisinopril 10 mg PO QAM ASK your prescriber and surgeon aspirin 325 mg PO DAILY STOP taking 24 hours before surgery efinaconazole 10 % topical solution with applicator 10 % TOPICAL DAILY PRN DO NOT take the morning of surgery cholecalciferol (vitamin D3) 1,000 unit capsule 1,000 units PO DAILY sildenafil (antihypertensive) 20 mg tablet 20 mg PO DAILY PRN multivitamin tablet 1 tab PO DAILY lisinopril 10 mg PO QAM Take morning of surgery With a small sip of water, OTHERWISE NOTHING TO EAT OR DRINK AFTER MIDNIGHT: finasteride 5 mg PO QAM Other Notes If you have any questions please call us at [phone] or [phone] or [phone] or [phone]
--- NOTE | 2018-11-21 11:16 | Anesthesiology Consultation ---
Date of Service November 21, 2018 Assessment & Plan (1) Encounter for pre-operative examination: - Awaiting review preop testing (labs, EKG, CXR). - Awaiting surgeon-ordered PCP clearance scheduled 11/25 (Dr. Gar). - ASA instructions per surgeon/prescriber* Chart Review Chart Review: Patient seen in Pre Admission Testing Teaching & Discussion Pre-Anesthesia Teaching/Discussion Notes: Instructed NPO after midnight before surgery,except medications with 15 cc of water. Medication instructions provided according to the PAT guidelines. History Surgery Operation Date: 12/22/18 08:30 Proposed Procedures p Right Total Knee Arthroplasty - Michael Barnett MD Height/Weight Height: 5 ft 10 in Weight: 90.6 kg Allergies Allergy/AdvReac Type Severity Reaction Status Date / Time simvastatin AdvReac Unknown myalgia Verified 11/14/18 08:48 Medications Home Medications Medication Instructions Recorded Confirmed Last Taken cholecalciferol (vitamin D3) 1,000 1,000 units PO DAILY #30 cap 07/29/18 11/14/18 Unknown unit capsule sildenafil (antihypertensive) 20 20 mg PO DAILY PRN #90 tab MDD 5 07/29/18 11/14/18 Unknown mg tablet TABS efinaconazole 10 % topical 10 % TOPICAL DAILY PRN #4 ml 08/01/18 11/14/18 Unknown solution with applicator multivitamin tablet 1 tab PO DAILY 08/01/18 11/14/18 Unknown aspirin 325 mg PO DAILY 11/14/18 11/14/18 Unknown celecoxib 100 mg PO BID 11/14/18 11/14/18 Unknown finasteride 5 mg PO QAM 11/14/18 11/14/18 Unknown lisinopril 10 mg PO QAM 11/14/18 11/14/18 Unknown Past Medical History Medical History Hypertension (Chronic) Cerebellar artery occlusion (Resolved) "brain" blood clot 15 years ago- now on ASA/no issues since Acid reflux diet controlled Arthritis Enlarged prostate Exercise / Class Metabolic Activity II 4-5 Yardwork/Stairs/Walk up hill Past Family History Family History Father Bladder cancer Brother Brain malignant neoplasm Sister Breast cancer Mother Osteoporosis Past Surgical History Surgical History H/O exploratory laparotomy H/O inguinal hernia repair right H/O total knee replacement Left TKA: 10/30/16: SAB x 2 at L2-L3 + PNB at [facility] History of colonoscopy History of laparoscopic cholecystectomy Past Anesthesia History No Hx of Anesthesia Complications and No Family Hx of Anesthesia Complications History of PONV No Hx of PONV and Hx of Motion Sickness Social History Smoking Status: Never smoker Do You Dip or Chew Tobacco: No Hx Alcohol Use: Yes Alcohol type: beer, wine and hard liquor Alcohol Intake Frequency Comment: ONCE A WEEK Hx Substance Use: No substance use type: does not use Review of Systems Diet controlled reflux. Patient denies chest pain, shortness of breath, dyspnea on exertion, cough, wheezing, palpitations. Physical Exam Vital Signs VITALS BP 147/86 P 83 TEMP 97.8 SP02 RESP PHYSICAL Full neck and c-spine range of motion. Full TMJ range of motion. TMD 3 finger breaths Mallampati Score 2 Dentition: missing sides/molars, plan for tooth extraction 11/22 (surgeon aware) Lungs: clear throughout to auscultation Cardiac: regular rate and rhythm, I/ systolic murmur Spine: normal Carotid arteries: negative bruit Extremities: no edema
--- NOTE | 2018-11-21 11:52 | XRay Report ---
XR chest Pre-admission PA/Lat CLINICAL HISTORY: Preoperative evaluation. COMPARISON STUDY: Chest radiograph October 05, 2016. FINDINGS: Lung volumes are normal. Lungs are clear. There is no pneumothorax or pleural effusion. Car diac size is normal. Mediastinal contours are normal. There is no evidence for pulmonary edema. IMPRESSION: No acute cardiopulmonary findings. Electronically signed by: Bowen Berman M.D. 11/21/2018 11:51 AM
[2018-11-21 13:17] LABS: Appearance Urine Cloudy (Clear); Bacteria Urine Automated Negative (Negative); Basophils # (auto) 0.02 K/uL (0-0.2); Basophils % (auto) 0.2 %; Bilirubin Urine Negative (Negative); Blood Urine Negative (Negative); Color Urine Yellow; Eosinophils # (auto) 0.12 K/uL (0-0.5); Eosinophils % (auto) 1.4 %; Epithelial Cell Urine Auto 0-5 /lpf (0-5); Glucose Urine UA Negative (Negative); Hematocrit (blood only) 43.6 % (42-52); Hemoglobin 15.4 g/dL (14.0-18.0); Immature Granulocytes # (auto) 0.02 K/uL (0.00-0.02); Immature Granulocytes % (auto) 0.2 %; Ketones Urine Negative (Negative); Leukocyte Esterase Urine Negative (Negative); Lymphocytes # (auto) 2.48 K/uL (1.2-3.4); Lymphocytes % (auto) 29.1 %; Mean Corpuscular Hemoglobin 28.6 pg (25-34); Mean Corpuscular Hgb Conc 35.3 g/dL (32-36); Mean Platelet Volume 9.8 fL (7.4-10.4); Monocytes # (auto) 0.49 K/uL (0.11-0.59); Monocytes % (auto) 5.8 %; Neutrophils # (auto) 5.39 K/uL (1.4-6.5); Neutrophils % (auto) 63.3 %; Nitrite Urine Negative (Negative); Platelet Count 208 K/uL (130-400); Protein Urine Negative (Negative); RBC Urine Automated 0-4 /hpf (0-4); RDW Coefficient of Variation 12.8 % (11.5-14.5); RDW Standard Deviation 37.6 fL (36.4-46.3); Red Blood Count 5.38 M/uL (4.7-6.1); Specific Gravity Urine 1.018 (1.000-1.030); Urobilinogen Urine Negative (Negative); WBC Urine Automated 0 /hpf (0-5); White Blood Count 8.52 K/uL (4.8-10.8)
[2018-11-21 13:22] LABS: INR 1.1 (0.9-1.1); Partial Thromboplastin Time 27.4 Seconds (21.0-31.0); Prothrombin Time 10.9 Seconds (9.0-12.0)
[2018-11-21 13:25] LABS: Estimated Average Glucose 108 mg/dl; Hemoglobin A1C 5.4 % (4.5-5.6)
[2018-11-21 13:57] LABS: Albumin Level 3.7 gm/dl (3.4-5.0); BUN Creatinine Ratio 16.2 (10-20); Calcium 10.6 mg/dl (8.5-10.1); Creatinine Clr Calc Pharmacy 86.5 ml/min; Est GFR (African American) 99.9; Est GFR (Non-African American) 86.2; Potassium 4.1 mmol/L (3.5-5.1)
--- NOTE | 2018-11-23 12:19 | History & Physical Report ---
Date of Service November 23, 2018 Assessment & Plan (1) Primary osteoarthritis of right knee: Treatment options were discussed. He has failed conservative therapy as above. Risks, benefits and alternatives to surgery including but not limited to infection, DVT, pain, stiffness, need for revision surgery, damage to blood vessels, damage to nerves, PE, , were discussed with the patient and they wish to proceed. Plan will be for right total knee arthroplasty on 12/22/18. We will plan on Aspirin 325mg BID x 30 days post operatively for DVT prophylaxis. Plans on home with home therapy upon discharge from hospital. He will follow up post operatively. All questions answered. History of Present Illness Chief Complaint: Right knee pain Primary Care Provider: Yomaira Gar MD 68 year old male with PMHx significant for HTN, cerebellar artery occlusion, GERD, OA presents with ongoing right knee pain. He has had previous left TKA by Dr. Barnett. He has failed conservative measures including anti-inflammatories, cortisone injections, and visco injections. He would like to proceed with surgical intervention. Patient denies headaches, sweats, fevers, chills, double vision, blurred vision, cough, sore throat, dysphagia, chest pain, sob, wheezing, n/v/d/c, numbness, tingling, fatigue, urinary symptoms, mood disorders. ROS positive for right knee pain and stiffness. Allergies Allergy/AdvReac Type Severity Reaction Status Date / Time simvastatin AdvReac Unknown myalgia Verified 11/14/18 08:48 Home Medications Home Medications Medication Instructions Recorded Confirmed Type cholecalciferol (vitamin D3) 1,000 1,000 units PO DAILY #30 cap 07/29/18 11/14/18 Rx unit capsule sildenafil (antihypertensive) 20 20 mg PO DAILY PRN #90 tab MDD 5 07/29/18 11/14/18 Rx mg tablet TABS efinaconazole 10 % topical 10 % TOPICAL DAILY PRN #4 ml 08/01/18 11/14/18 Rx solution with applicator multivitamin tablet 1 tab PO DAILY 08/01/18 11/14/18 History aspirin 325 mg PO DAILY 11/14/18 11/14/18 History celecoxib 100 mg PO BID 11/14/18 11/14/18 History finasteride 5 mg PO QAM 11/14/18 11/14/18 History lisinopril 10 mg PO QAM 11/14/18 11/14/18 History Past Med/Surg History Medical History Hypertension (Chronic) Cerebellar artery occlusion (Resolved) "brain" blood clot 15 years ago- now on ASA/no issues since Acid reflux diet controlled Arthritis Enlarged prostate Surgical History H/O exploratory laparotomy H/O inguinal hernia repair right H/O total knee replacement Left TKA: 10/30/16: SAB x 2 at L2-L3 + PNB at [facility] History of colonoscopy History of laparoscopic cholecystectomy Family History Father Bladder cancer Brother Brain malignant neoplasm Sister Breast cancer Mother Osteoporosis Social History Preferred Language: Burmese Communication Ability: Effective 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 Beliefs That Will Affect Care: None marital status: Current Living Situation: Spouse current occupational status: retired Other Information That Helps Us Care for You: No Feels Safe at Home: Yes Smoking Status: Never smoker Do You Dip or Chew Tobacco: No ; Hx Alcohol Use: Yes Alcohol type: beer, wine and hard liquor Hx Substance Use: No Review of Systems All systems reviewed & are unremarkable except as noted in HPI & below Physical Exam Constitutional: well developed and well nourished; no acute distress Eyes: PERRL, conjunctivae normal, anicteric sclerae ENMT: external ear and nose normal, oropharynx normal Neck: trachea midline, no thyromegaly Respiratory: normal respiratory effort, lungs clear to auscultation Cardiovascular: RRR, no murmur, no edema Musculoskeletal: Right knee-tenderness to medial joint line. ROM 0-130 with crepitation. Stable to valgus and varus stress test. Positive Gilma's Skin: no rashes, warm and dry Neurologic: patellar DTR's 2+ bilat, sensation intact Psychiatric: A+Ox3, euthymic affect Results & Data Laboratory Results Lab Results 11/21/18 11/21/18 11/21/18 Range/Units 11:27 11:27 11:27 WBC 8.52 (4.8-10.8) K/uL RBC 5.38 (4.7-6.1) M/uL Hgb 15.4 (14.0-18.0) g/dL Hct 43.6 (42-52) % MCV 81.0 (80-100) fL MCH 28.6 (25-34) pg MCHC 35.3 (32-36) g/dL RDW Std Deviation 37.6 (36.4-46.3) fL RDW Coeff of Miryam 12.8 (11.5-14.5) % Plt Count 208 (130-400) K/uL MPV 9.8 (7.4-10.4) fL Immature Gran % (Auto) 0.2 % Neut % (Auto) 63.3 % Lymph % (Auto) 29.1 % [place] % (Auto) 5.8 % Eos % (Auto) 1.4 % Baso % (Auto) 0.2 % Immature Gran # (Auto) 0.02 (0.00-0.02) K/uL Neut # (Auto) 5.39 (1.4-6.5) K/uL Lymph # (Auto) 2.48 (1.2-3.4) K/uL [place] # (Auto) 0.49 (0.11-0.59) K/uL Eos # (Auto) 0.12 (0-0.5) K/uL Baso # (Auto) 0.02 (0-0.2) K/uL PT 10.9 (9.0-12.0) Seconds INR 1.1 (0.9-1.1) APTT 27.4 (21.0-31.0) Seconds PTT Ratio 1.0 Sodium 138 (136-145) mmol/L Potassium 4.1 (3.5-5.1) mmol/L Chloride 107 (98-107) mmol/L Carbon Dioxide 24 (21-32) mmol/L Anion Gap 7.0 (3-11) BUN 15 (7-18) mg/dl Creatinine 0.90 (0.6-1.4) mg/dl Est Cr Clr Drug Dosing 86.5 ml/min Est GFR ( Amer) 99.9 Est GFR (Non-Af Amer) 86.2 BUN/Creatinine Ratio 16.2 (10-20) Glucose 137 H (70-99) mg/dl Estimat Average Glucose mg/dl Hemoglobin A1c (4.5-5.6) % Calcium 10.6 H (8.5-10.1) mg/dl Albumin 3.7 (3.4-5.0) gm/dl Urine Color Urine Appearance (Clear) Urine pH (4.5-7.5) Ur Specific [place] (1.000-1.030) Urine Protein (Negative) Urine Glucose (UA) (Negative) Urine Ketones (Negative) Urine Blood (Negative) Urine Nitrite (Negative) Urine Bilirubin (Negative) Urine Urobilinogen (Negative) Ur Leukocyte Esterase (Negative) Urine WBC (Auto) (0-5) /hpf Urine RBC (Auto) (0-4) /hpf U Hyaline Cast (Auto) (0-5) /lpf U Epithel Cells (Auto) (0-5) /lpf Urine Bacteria (Auto) (Negative) Blood Type Antibody Screen 11/21/18 11/21/18 11/21/18 Range/Units 11:27 11:27 11:27 WBC (4.8-10.8) K/uL RBC (4.7-6.1) M/uL Hgb (14.0-18.0) g/dL Hct (42-52) % MCV (80-100) fL MCH (25-34) pg MCHC (32-36) g/dL RDW Std Deviation (36.4-46.3) fL RDW Coeff of Miryam (11.5-14.5) % Plt Count (130-400) K/uL MPV (7.4-10.4) fL Immature Gran % (Auto) % Neut % (Auto) % Lymph % (Auto) % [place] % (Auto) % Eos % (Auto) % Baso % (Auto) % Immature Gran # (Auto) (0.00-0.02) K/uL Neut # (Auto) (1.4-6.5) K/uL Lymph # (Auto) (1.2-3.4) K/uL [place] # (Auto) (0.11-0.59) K/uL Eos # (Auto) (0-0.5) K/uL Baso # (Auto) (0-0.2) K/uL PT (9.0-12.0) Seconds INR (0.9-1.1) APTT (21.0-31.0) Seconds PTT Ratio Sodium (136-145) mmol/L Potassium (3.5-5.1) mmol/L Chloride (98-107) mmol/L Carbon Dioxide (21-32) mmol/L Anion Gap (3-11) BUN (7-18) mg/dl Creatinine (0.6-1.4) mg/dl Est Cr Clr Drug Dosing ml/min Est GFR ( Amer) Est GFR (Non-Af Amer) BUN/Creatinine Ratio (10-20) Glucose (70-99) mg/dl Estimat Average Glucose 108 mg/dl Hemoglobin A1c 5.4 (4.5-5.6) % Calcium (8.5-10.1) mg/dl Albumin (3.4-5.0) gm/dl Urine Color Yellow Urine Appearance Cloudy A (Clear) Urine pH 7.0 (4.5-7.5) Ur Specific [place] 1.018 (1.000-1.030) Urine Protein Negative (Negative) Urine Glucose (UA) Negative (Negative) Urine Ketones Negative (Negative) Urine Blood Negative (Negative) Urine Nitrite Negative (Negative) Urine Bilirubin Negative (Negative) Urine Urobilinogen Negative (Negative) Ur Leukocyte Esterase Negative (Negative) Urine WBC (Auto) 0 (0-5) /hpf Urine RBC (Auto) 0-4 (0-4) /hpf U Hyaline Cast (Auto) 1-5 (0-5) /lpf U Epithel Cells (Auto) 0-5 (0-5) /lpf Urine Bacteria (Auto) Negative (Negative) Blood Type O Negative Antibody Screen NEGATIVE Diagnostic Findings Right knee radiographs: [id number] medial compartment with periarticular osteophyte formation and subchondral sclerosis
[2018-12-22] MEDS ORDERED: dexAMETHasone 4 MG TAB PO SCH (06:00)
[2018-12-22] MEDS ORDERED: CEFAZOLIN 2000MG 2,000 MG/15 ML SYR IV SCH (06:00)
[2018-12-22] MEDS ORDERED: METOCLOPRAMIDE HCL 10 MG TABLET PO SCH (06:00)
[2018-12-22] MEDS ORDERED: FAMOTIDINE 20 MG TAB PO SCH (06:00)
[2018-12-22] MEDS ORDERED: GABAPENTIN 300 MG CAP PO SCH (06:00)
[2018-12-22] MEDS ORDERED: CeleBREX 200 MG CAP PO SCH (06:00)
[2018-12-22] MEDS ORDERED: ACETAMINOPHEN 500 MG TAB PO SCH (06:00)
[2018-12-22] MEDS ORDERED: ROPIVACAINE 0.5% HCL/PF 150 MG, BUPIVACAINE 0.5% MPF 30 ML, EPINEPHrine 30MG/30ML (OR U... INSTIL SCH (06:00)
[2018-12-22] MEDS ORDERED: LR 500ML BOLUS, THEN 15ML/HR IV SCH (06:00)
[2018-12-22] MEDS ORDERED: BUPIVACAINE/EPINEPHRINE 0.25% 1:200,000 30 ML VIAL ONE (06:30)
[2018-12-22] MEDS ORDERED: BUPIVACAINE 0.5 % 5 MG/1 ML PF 10ML VIAL ONE (06:30)
[2018-12-22] MEDS ORDERED: MIDAZOLAM HCL 1 MG/ML 2ML VIAL ONE ×2 (06:38→08:55)
[2018-12-22] MEDS ORDERED: ONDANSETRON INJ 2 MG/ML 2 ML VIAL ONE (06:50)
[2018-12-22] MEDS ORDERED: LIDOCAINE HCL 2% 2 ML VIAL/AMP(20MG/ML) INFIL ONE (06:50)
[2018-12-22] MEDS ORDERED: PROPOFOL IV EMULSION 10 MG/ML 20 ML VIAL IV ONE ×5 (06:50→09:43)
--- NOTE | 2018-12-22 06:52 | History & Physical Bridge Note ---
Date of Service December 22, 2018 History & Physical Bridge Note I have examined the patient, reviewed the History & Physical and in the interval since the performance of the History & Physical I have noted the following changes of clinical significance: no changes noted
[2018-12-22] MEDS ORDERED: BACITRACIN INJ 50,000 UNIT VIAL ONE (07:19)
[2018-12-22] MEDS ORDERED: ATROPINE SULFATE 0.1 MG/ML 10ML SYR IV PRN (07:28)
[2018-12-22] MEDS ORDERED: fentaNYL citrate 100 MCG/2 ML VIAL IV PRN (07:28)
[2018-12-22] MEDS ORDERED: ePHEDrine sulfate 50 MG/ML AMP IV PRN (07:28)
[2018-12-22] MEDS ORDERED: HYDROmorphone INJ 1 MG/ML SYRINGE IV PRN (07:28)
[2018-12-22] MEDS ORDERED: ONDANSETRON INJ 2 MG/ML 2 ML VIAL IV PRN ×2 (07:28→11:38)
[2018-12-22] MEDS ORDERED: KETAMINE HCL INJ 50 MG/ML 10 ML VIAL ONE (08:22)
--- NOTE | 2018-12-22 09:38 | Operative Report ---
Post Operative Report Pre & Post Diagnosis Operation Date: 12/22/18 08:00 Pre-Op Diagnosis: Unilateral Primary Osteoarthritis, Right Knee Post-Op Diagnosis: Unilateral Primary Osteoarthritis, Right Knee I identified the patient and participated in the time-out.: Yes Procedure Operation Date: 12/22/18 08:00 Actual Procedures p Right Total Knee Arthroplasty(Right) - Michael Barnett MD Surgeon Michael Barnett MD Ergonomist Tee Mathias PA-C Estimated Blood Loss 20 Findings Consistent with Post-Op Diagnosis Specimens bone and tissue Drains 2 Hemovac Anesthesia Type Spinal MAC Complications none Disposition Accompanied Patient To Recovery: No Disposition: Recovery Room Indications The patient is a 68-year-old male long-standing arthritic change the right knee. He is near [id number] in the medial compartment with osteophyte formation of the medial femoral condyle medial tibial plateau. He has failed conservative measures including injection, anti-inflammatories and rehab. He wishes to proceed with a right total knee arthroplasty. Description of Procedure Risks benefits and alternatives of surgery including but not limited to infection, DVT, pain, stiffness, need for surgery, damage to blood vessels, damage to nerves or risks of anesthesia were discussed with the patient and they wished to proceed. The patient was identified and the laterality was confirmed and marked. They received a preoperative antibiotic as well as a spinal anesthetic and an abductor canal block. A well-padded tourniquet was applied and then the limb was prepped and draped in standard manner with ChloraPrep. The limb was exsanguinated and the tourniquet was inflated. I made a standard anterior incision. I sharply incised the skin then utilized Bovie electrocautery to achieve hemostasis. I made a medial parapatellar arthrotomy and mobilized the patella laterally. I then excised the anterior horns of the medial and lateral meniscus as well as the infrapatellar fat pad. I elevated a portion of the MCL off of the tibia. I then pinned into place a patient-matched distal femoral cutting guide and made my distal femoral resection. I then pinned into place the 5 in 1 femoral cutting guide. I made my anterior, posterior and chamfer cuts. I then excised the cruciates and the remaining portions of the menisci. I then pinned into place a patient- matched tibial cutting guide and made my tibial resection. I then pinned into place the tibial plate a utilizing alignment ally to confirm r otation. I then cut for the post. Utilizing a lamina boring mill set up operator vertical and I then removed posterior osteophytes off the femur. I then placed a trial femur into position and cut for the trochlear component. I then sequentially trialed to size the polyethylene until there was good soft tissue balancing and range of motion. I then prepared the patella with a freehand cut utilizing sagittal saw. I sized and drilled for the patella. There was some lateral tracking the patella small lateral release was required All the trial components were removed. The deep tissues were anesthetized with an ortho mix solution. Then with Simplex HV with gentamicin cement, I cemented my definitive components. Definitive components, Haddad and Nephew Journey 2: Femur 7 Tibia 7 Poly 9 Patella 35 oval A betadine soak was performed. A deep drain was placed. The arthrotomy was closed with interrupted #1 Vicryl suture subcutaneous tissue was closed with interrupted 2-0 Vicryl suture. The skin was closed with with arely. An Acticoat and Yahaira dressing were placed. Sterile dressings were applied. All needle and sponge counts were correct at the end of the procedure patient was transferred to the PACU in stable condition without apparent complication. The PA-C was necessary for assistance with procedure for assistance in positioning, prepping, draping, retraction and closure. I attest to the content of the Intraoperative Record and any orders documented therein. Any exceptions are noted below.
--- NOTE | 2018-12-22 10:51 | Anesthesiology Progress Note ---
Date of Service December 22, 2018 Anesthesia Post Procedure Vital Signs Vital Signs: Temp Pulse Pulse Resp BP Pulse Ox 12/22/18 10:40 90 14 146/92 H 97 12/22/18 10:32 86 14 128/78 97 12/22/18 10:22 36.6 C 89 89 18 119/75 98 12/22/18 05:58 36.9 C 94 H 20 142/86 H 97 Pain Intensity Right Knee: Pain Intensity: 7 Transfer of Care Handoff Completed per policy Notes Mental Status: alert / awake / arousable and participated in evaluation Patient Amnestic to Procedure: Yes Nausea / Vomiting: adequately controlled Pain: adequately controlled Airway Patency, RR, SpO2: stable & adequate BP & HR: stable & adequate Hydration State: stable & adequate Anesthetic Complications: no major complications apparent and Pt Satisfied with anesthetic care
--- NOTE | 2018-12-22 11:19 | XRay Report ---
XR knee RT 1 or 2V routine CLINICAL HISTORY: Surgical Post Op COMPARISON: None. DISCUSSION: There are postsurgical changes of a total right knee arthroplasty and patellar resurfacin g. The femoral and tibial components appear well seated. Overlying skin arely and surgical drains a re evident. There is gas in the soft tissues, consistent with recent surgery. IMPRESSION: Postsurgical changes of a total right knee arthroplasty. Electronically signed by: Wilian Palacios M.D. 12/22/2018 11:18 AM
[2018-12-22] MEDS ORDERED: SILDENAFIL CITRATE 20 MG TABLET PO PRN (11:38)
[2018-12-22] MEDS ORDERED: HYDROmorphone INJ 0.5 MG/0.5 ML SYR IV PRN (11:38)
[2018-12-22] MEDS ORDERED: BISACODYL 10 MG SUPP PR PRN (11:38)
[2018-12-22] MEDS ORDERED: NALOXONE HCL 0.4 MG/1 ML VIAL/CARP IV PRN (11:38)
[2018-12-22] MEDS ORDERED: METOCLOPRAMIDE HCL INJ 5 MG/ML 2 ML VIAL IV PRN (11:38)
[2018-12-22] MEDS ORDERED: TAMSULOSIN HCL 0.4 MG CAP PO PRN (11:38)
[2018-12-22] MEDS ORDERED: OXYCODONE HCL IR 5 MG TAB (IMMEDIATE RELEASE) PO PRN (11:38)
[2018-12-22] MEDS ORDERED: MAGNESIUM HYDROXIDE SUSP 30 ML UDC PO PRN (11:38)
[2018-12-22] MEDS: ACETAMINOPHEN 500 MG TAB PO SCH ×2 (13:33→22:58)
[2018-12-22] MEDS: SODIUM CHLORIDE 0.9% 1000ML 1,000 ML IV SCH ×2 (14:24→23:43)
[2018-12-22] MEDS: CEFAZOLIN 2000MG 2,000 MG/15 ML SYR IV SCH ×2 (15:30→23:00)
[2018-12-22] MEDS: CeleBREX 200 MG CAP PO SCH (20:56)
[2018-12-22] MEDS: ASPIRIN 325 MG ECTAB PO SCH (20:57)
[2018-12-22] MEDS: DOCUSATE SODIUM 100 MG CAP PO SCH (20:58)
[2018-12-22] MEDS ORDERED: SENNA 8.6 MG TAB PO SCH (21:00)
[2018-12-23] MEDS: ACETAMINOPHEN 500 MG TAB PO SCH ×2 (05:29→13:55)
[2018-12-23 05:38] LABS: Hematocrit (blood only) 33.1 % (42-52); Hemoglobin 11.7 g/dL (14.0-18.0); Mean Corpuscular Hemoglobin 28.4 pg (25-34); Mean Corpuscular Hgb Conc 35.3 g/dL (32-36); Mean Corpuscular Volume 80.3 fL (80-100); Mean Platelet Volume 9.4 fL (7.4-10.4); Platelet Count 213 K/uL (130-400); RDW Coefficient of Variation 13.2 % (11.5-14.5); RDW Standard Deviation 38.5 fL (36.4-46.3); Red Blood Count 4.12 M/uL (4.7-6.1); White Blood Count 23.68 K/uL (4.8-10.8)
[2018-12-23 06:13] LABS: BUN Creatinine Ratio 21.1 (10-20); Calcium 9.4 mg/dl (8.5-10.1); Creatinine Clr Calc Pharmacy 93.8 ml/min; Est GFR (African American) 103.3; Est GFR (Non-African American) 89.2; Potassium 4.5 mmol/L (3.5-5.1)
--- NOTE | 2018-12-23 07:39 | Orthopedic Progress Note ---
Date of Service December 23, 2018 Assessment & Plan (1) Primary osteoarthritis of right knee: POD#1 Right TKA -Pain management -DVT prophylaxis-Asprin 325mg BID x 30 days -PT/OT -AM labs-hemoglobin 11.7 this am-acute blood loss anemia likely due to surgical loss vs dilutional effect -D/C planning-Discharge possibly later today as long as PT goes well and HH can remove drain tomorrow Subjective Patient is POD#1 right TKA. Pain well controlled this morning. No other complaints. Denies chest pain, sob, dizziness, n/v/d. Review of Systems Review of Systems: All systems reviewed & are unremarkable except as noted in HPI & below Physical Exam Physical Exam: Right knee dressing is c/d/i, hemovac and Yahaira in place. Good dorsiflexion, toes mobile. No calf tenderness. Distally n/v status and sensation intact Constitutional: well developed and well nourished; no acute distress Results & Data Vital Signs (Past 12 Hours) Vital Signs Temp Pulse Resp BP Pulse Ox 12/23/18 03:40 36.4 C L 80 18 101/67 94 12/22/18 23:39 36.7 C 87 18 107/75 95 Laboratory Results H & H 11/21/18 12/23/18 Range/Units 11:27 05:13 Hgb 15.4 11.7 L (14.0-18.0) g/dL Hct 43.6 33.1 L (42-52) % Coagulation 11/21/18 Range/Units 11:27 INR 1.1 (0.9-1.1)
--- NOTE | 2018-12-23 07:58 | Anesthesiology Progress Note ---
Date of Service December 23, 2018 Anesthesia Post Procedure Vital Signs Vital Signs: Temp Pulse Pulse Pulse Resp BP Pulse Ox 12/23/18 03:40 36.4 C L 80 18 101/67 94 12/22/18 23:39 36.7 C 87 18 107/75 95 12/22/18 19:03 36.5 C 100 H 18 122/76 94 12/22/18 14:27 86 18 127/79 96 12/22/18 13:25 100 H 17 124/69 96 12/22/18 12:38 79 16 122/82 97 12/22/18 12:13 36.8 C 78 17 117/82 96 12/22/18 11:30 36.6 C 85 16 95 12/22/18 11:15 85 20 112/77 95 12/22/18 11:00 36.5 C 86 15 116/81 93 12/22/18 10:50 84 14 123/83 97 12/22/18 10:40 90 14 146/92 H 97 12/22/18 10:32 86 14 128/78 97 12/22/18 10:22 36.6 C 89 89 18 119/75 98 Pain Intensity Right Knee: Pain Intensity: 7 Notes Mental Status: alert / awake / arousable and participated in evaluation Patient Amnestic to Procedure: Yes Nausea / Vomiting: adequately controlled Pain: adequately controlled Airway Patency, RR, SpO2: stable & adequate BP & HR: stable & adequate Hydration State: stable & adequate Neuraxial Anesthesia: was administered and sensory block resolved Anesthetic Complications: no major complications apparent and Pt Satisfied with anesthetic care
[2018-12-23] MEDS: CeleBREX 200 MG CAP PO SCH (08:11)
[2018-12-23] MEDS: ASPIRIN 325 MG ECTAB PO SCH (08:11)
[2018-12-23] MEDS: DOCUSATE SODIUM 100 MG CAP PO SCH (08:12)
[2018-12-23] MEDS ORDERED: FINASTERIDE 5 MG TAB PO SCH (09:00)
[2018-12-23] MEDS ORDERED: CHOLECALCIFEROL 1,000 UNITS TAB PO SCH (09:00)
[2018-12-23] MEDS ORDERED: LISINOPRIL 10 MG TAB PO SCH (09:00)
[2018-12-23] MEDS ORDERED: MULTIVITAMIN TAB PO SCH ×2 (09:00)
--- NOTE | 2018-12-23 21:40 | Discharge Summary ---
Date of Service December 23, 2018 Admission HPI Per Admitting Provider 68 year old male with PMHx significant for HTN, cerebellar artery occlusion, GERD, OA presents with ongoing right knee pain. He has had previous left TKA by Dr. Barnett. He has failed conservative measures including anti-inflammatories, cortisone injections, and visco injections. He would like to proceed with surgical intervention. Patient denies headaches, sweats, fevers, chills, double vision, blurred vision, cough, sore throat, dysphagia, chest pain, sob, wheezing, n/v/d/c, numbness, tingling, fatigue, urinary symptoms, mood disorders. ROS positive for right knee pain and stiffness. Admission Exam Per Admitting Provider Constitutional: well developed and well nourished; no acute distress Eyes: PERRL, conjunctivae normal, anicteric sclerae ENMT: external ear and nose normal, oropharynx normal Neck: trachea midline, no thyromegaly Respiratory: normal respiratory effort, lungs clear to auscultation Cardiovascular: RRR, no murmur, no edema Musculoskeletal: Right knee-tenderness to medial joint line. ROM 0-130 with crepitation. Stable to valgus and varus stress test. Positive Gilma's Skin: no rashes, warm and dry Neurologic: patellar DTR's 2+ bilat, sensation intact Psychiatric: A+Ox3, euthymic affect Principal Diagnosis Right knee osteoarthritis Discharge Exam Constitutional well developed and well nourished; no acute distress Eyes PERRL, conjunctivae normal, anicteric sclerae ENMT external ear and nose normal, oropharynx normal Neck trachea midline, no thyromegaly Respiratory normal respiratory effort, lungs clear to auscultation Cardiovascular RRR, no murmur, no edema Skin no rashes, warm and dry Neurologic patellar DTR's 2+ bilat, sensation intact Psychiatric A+Ox3, euthymic affect Discharge Data Allergies Allergy/AdvReac Type Severity Reaction Status Date / Time simvastatin AdvReac Unknown myalgia Verified 11/25/18 09:10 Consultations 12/22/18 11:38 Consult Case Management - Discharge Planning Routine Procedures Performed Operation Date: 12/22/18 08:00 Actual Procedures p Right Total Knee Arthroplasty(Right) - Michael Barnett MD Ordered Studies 12/22/18 05:00 US - OR guided needle placemen Routine Hospital Course (1) Primary osteoarthritis of right knee: Patient presented for same day admission following right total knee arthroplasty on 12/22/18. He tolerated procedure well. The Patient had an uneventful hospital course. Post-operatively, his activity was progressed and well tolerated. They participated in PT with ambulation distance of 285 feet. ROM of operative knee reached 90 degrees. Labs remained stable- lowest hemoglobin recorded: 11.7. Pain controlled on oral medications. Please refer to daily progress notes and PT notes for complete details. After exam on 12/23/18, patient was felt to be stable for discharge home with home health therapy. Will keep hemovac drain in place at discharge to be removed by home health on POD#2. Patient will f/u in the office in about 2 weeks for further evaluation including x-rays and incision check, sooner if having any issues or concerns. Lab Results 11/21/18 11/21/18 11/21/18 Range/Units 11:27 11:27 11:27 WBC 8.52 (4.8-10.8) K/uL RBC 5.38 (4.7-6.1) M/uL Hgb 15.4 (14.0-18.0) g/dL Hct 43.6 (42-52) % MCV 81.0 (80-100) fL MCH 28.6 (25-34) pg MCHC 35.3 (32-36) g/dL RDW Std Deviation 37.6 (36.4-46.3) fL RDW Coeff of Miryam 12.8 (11.5-14.5) % Plt Count 208 (130-400) K/uL MPV 9.8 (7.4-10.4) fL Immature Gran % (Auto) 0.2 % Neut % (Auto) 63.3 % Lymph % (Auto) 29.1 % [place] % (Auto) 5.8 % Eos % (Auto) 1.4 % Baso % (Auto) 0.2 % Immature Gran # (Auto) 0.02 (0.00-0.02) K/uL Neut # (Auto) 5.39 (1.4-6.5) K/uL Lymph # (Auto) 2.48 (1.2-3.4) K/uL [place] # (Auto) 0.49 (0.11-0.59) K/uL Eos # (Auto) 0.12 (0-0.5) K/uL Baso # (Auto) 0.02 (0-0.2) K/uL PT 10.9 (9.0-12.0) Seconds INR 1.1 (0.9-1.1) APTT 27.4 (21.0-31.0) Seconds PTT Ratio 1.0 Sodium 138 (136-145) mmol/L Potassium 4.1 (3.5-5.1) mmol/L Chloride 107 (98-107) mmol/L Carbon Dioxide 24 (21-32) mmol/L Anion Gap 7.0 (3-11) BUN 15 (7-18) mg/dl Creatinine 0.90 (0.6-1.4) mg/dl Est Cr Clr Drug Dosing 86.5 ml/min Est GFR ( Amer) 99.9 Est GFR (Non-Af Amer) 86.2 BUN/Creatinine Ratio 16.2 (10-20) Glucose 137 H (70-99) mg/dl Estimat Average Glucose mg/dl Hemoglobin A1c (4.5-5.6) % Calcium 10.6 H (8.5-10.1) mg/dl Albumin 3.7 (3.4-5.0) gm/dl Urine Color Urine Appearance (Clear) Urine pH (4.5-7.5) Ur Specific [place] (1.000-1.030) Urine Protein (Negative) Urine Glucose (UA) (Negative) Urine Ketones (Negative) Urine Blood (Negative) Urine Nitrite (Negative) Urine Bilirubin (Negative) Urine Urobilinogen (Negative) Ur Leukocyte Esterase (Negative) Urine WBC (Auto) (0-5) /hpf Urine RBC (Auto) (0-4) /hpf U Hyaline Cast (Auto) (0-5) /lpf U Epithel Cells (Auto) (0-5) /lpf Urine Bacteria (Auto) (Negative) Blood Type Antibody Screen 11/21/18 11/21/18 11/21/18 Range/Units 11:27 11:27 11:27 WBC (4.8-10.8) K/uL RBC (4.7-6.1) M/uL Hgb (14.0-18.0) g/dL Hct (42-52) % MCV (80-100) fL MCH (25-34) pg MCHC (32-36) g/dL RDW Std Deviation (36.4-46.3) fL RDW Coeff of Miryam (11.5-14.5) % Plt Count (130-400) K/uL MPV (7.4-10.4) fL Immature Gran % (Auto) % Neut % (Auto) % Lymph % (Auto) % [place] % (Auto) % Eos % (Auto) % Baso % (Auto) % Immature Gran # (Auto) (0.00-0.02) K/uL Neut # (Auto) (1.4-6.5) K/uL Lymph # (Auto) (1.2-3.4) K/uL [place] # (Auto) (0.11-0.59) K/uL Eos # (Auto) (0-0.5) K/uL Baso # (Auto) (0-0.2) K/uL PT (9.0-12.0) Seconds INR (0.9-1.1) APTT (21.0-31.0) Seconds PTT Ratio Sodium (136-145) mmol/L Potassium (3.5-5.1) mmol/L Chloride (98-107) mmol/L Carbon Dioxide (21-32) mmol/L Anion Gap (3-11) BUN (7-18) mg/dl Creatinine (0.6-1.4) mg/dl Est Cr Clr Drug Dosing ml/min Est GFR ( Amer) Est GFR (Non-Af Amer) BUN/Creatinine Ratio (10-20) Glucose (70-99) mg/dl Estimat Average Glucose 108 mg/dl Hemoglobin A1c 5.4 (4.5-5.6) % Calcium (8.5-10.1) mg/dl Albumin (3.4-5.0) gm/dl Urine Color Yellow Urine Appearance Cloudy A (Clear) Urine pH 7.0 (4.5-7.5) Ur Specific [place] 1.018 (1.000-1.030) Urine Protein Negative (Negative) Urine Glucose (UA) Negative (Negative) Urine Ketones Negative (Negative) Urine Blood Negative (Negative) Urine Nitrite Negative (Negative) Urine Bilirubin Negative (Negative) Urine Urobilinogen Negative (Negative) Ur Leukocyte Esterase Negative (Negative) Urine WBC (Auto) 0 (0-5) /hpf Urine RBC (Auto) 0-4 (0-4) /hpf U Hyaline Cast (Auto) 1-5 (0-5) /lpf U Epithel Cells (Auto) 0-5 (0-5) /lpf Urine Bacteria (Auto) Negative (Negative) Blood Type O Negative Antibody Screen NEGATIVE 12/23/18 12/23/18 Range/Units 05:13 05:13 WBC 23.68 H (4.8-10.8) K/uL RBC 4.12 L (4.7-6.1) M/uL Hgb 11.7 L (14.0-18.0) g/dL Hct 33.1 L (42-52) % MCV 80.3 (80-100) fL MCH 28.4 (25-34) pg MCHC 35.3 (32-36) g/dL RDW Std Deviation 38.5 (36.4-46.3) fL RDW Coeff of Miryam 13.2 (11.5-14.5) % Plt Count 213 (130-400) K/uL MPV 9.4 (7.4-10.4) fL Immature Gran % (Auto) % Neut % (Auto) % Lymph % (Auto) % [place] % (Auto) % Eos % (Auto) % Baso % (Auto) % Immature Gran # (Auto) (0.00-0.02) K/uL Neut # (Auto) (1.4-6.5) K/uL Lymph # (Auto) (1.2-3.4) K/uL [place] # (Auto) (0.11-0.59) K/uL Eos # (Auto) (0-0.5) K/uL Baso # (Auto) (0-0.2) K/uL PT (9.0-12.0) Seconds INR (0.9-1.1) APTT (21.0-31.0) Seconds PTT Ratio Sodium 137 (136-145) mmol/L Potassium 4.5 (3.5-5.1) mmol/L Chloride 107 (98-107) mmol/L Carbon Dioxide 25 (21-32) mmol/L Anion Gap 5.0 (3-11) BUN 18 (7-18) mg/dl Creatinine 0.83 (0.6-1.4) mg/dl Est Cr Clr Drug Dosing 93.8 ml/min Est GFR ( Amer) 103.3 Est GFR (Non-Af Amer) 89.2 BUN/Creatinine Ratio 21.1 H (10-20) Glucose 121 H (70-99) mg/dl Estimat Average Glucose mg/dl Hemoglobin A1c (4.5-5.6) % Calcium 9.4 (8.5-10.1) mg/dl Albumin (3.4-5.0) gm/dl Urine Color Urine Appearance (Clear) Urine pH (4.5-7.5) Ur Specific [place] (1.000-1.030) Urine Protein (Negative) Urine Glucose (UA) (Negative) Urine Ketones (Negative) Urine Blood (Negative) Urine Nitrite (Negative) Urine Bilirubin (Negative) Urine Urobilinogen (Negative) Ur Leukocyte Esterase (Negative) Urine WBC (Auto) (0-5) /hpf Urine RBC (Auto) (0-4) /hpf U Hyaline Cast (Auto) (0-5) /lpf U Epithel Cells (Auto) (0-5) /lpf Urine Bacteria (Auto) (Negative) Blood Type Antibody Screen Total Time Total Time Spent Total Time Spent (In Minutes): 20 Discharge Plan Discharge Items Patient Disposition: Home - Home Health Services Reason For Visit: Unilateral Primary Osteoarthritis, Right Knee Discharge Diagnosis: Right knee osteoarthritis Activity: Per Instructions section Non-emergency contact: Surgeon Call non-emergency contact if: you have any medication questions, your pain is not controlled, your pain is worsening, your pain is concerning for you, you have a fever, your temperature is above 101, your wound has increased redness and your wound has increased drainage Follow-up/Referrals: Yomaira Gar MD [Primary Care Provider] - Diet: Regular Addtl Attending Provider Instructions: ACTIVITY RECOMMENDATIONS: SELF CARE INSTRUCTIONS AFTER TOTAL KNEE REPLACEMENT A. You may need to continue a physical therapy program after discharge from the hospital. There are several options available to you. Your doctor will assist you in selecting the best one for you. 1. An out-patient facility 2 to 3 times a week for therapy or home therapy. 2. Continue working on all exercises taught to you in the hospital. Your goals should be to increase bending of your knee to 90 degrees and beyond and to fully straighten your knee. B. You may progress at your own pace from walking with a walker or crutches to a cane; then to no assistive devices. C. Make walking a part of your daily routine. Be up as much as comfortable with rest periods throughout the day. Rest with leg elevation is very important. Use the ice wrap frequently for the first 3-4 weeks. D. There are no restrictions on activities. You may ride in a car, shop, participate in lan analyst and all social activities. E. Wear the long elastic stockings (STORMY hose) 20 hours a day for 2 weeks after surgery. They can be removed several times a day for laundering and for a bath. F. You may shower, no tub baths until cleared by your doctor. SPECIAL CARE INSTRUCTIONS: VERY IMPORTANT TO READ AND REVIEW A. There are a few signs you need to watch for after you are home. Call [facility] [place] if you notice any of the followin. Increased severe knee pain. Some pain is expected especially when you exercise. 2. Increased swelling in your leg or knee; pain or swelling of the calf muscle in either lower leg. 3. Any fluid drainage from the incision. 4. Shortness of breath or chest pain. B. Please call [facility] at if you have any concerns or questions about your operation or recovery. The doctor or his nurse will return your call promptly. C. You must take antibiotics before dental work, bladder, bowel or other surgery. Your doctor will provide you with a permanent care to carry describing this precaution. IMPORTANT: * REMEMBER TO TAKE ASPIRIN, 325 MG, TWICE DAILY FOR 4 WEEKS UNLESS OTHERWISE DIRECTED. THIS IS YOUR BLOOD THINNER. * HIGH RISK PATIENTS MAY BE PRESCRIBED A STRONGER BLOOD THINNER. THIS WILL BE PROVIDED AT DISCHARGE. * CALL IF INCREASED PAIN, REDNESS, DRAINAGE OR FEVER GREATER THAT 101. * WEAR STORMY HOSE 20 HOURS PER DAY FOR 2 WEEKS. * This is a large suction dressing covering your incision. This will help pull any excess drainage from the wound and allow your incision to heal properly. You may shower with this if you can keep the unit outside of the shower. If any bleeding or leakage is noted please call your doctor's office. This will remain on your incision for 7 days and then should be removed. This can be done yourself or by the home nursing staff if applicable. The entire unit is disposable once removed. Once removed, keep incision clean and dry. If redness or drainage is noted, please call your surgeon. . FOLLOW UP VISIT: If appointment is not already scheduled: Please call [facility] [place] to make a follow-up appointment for 2 weeks after your surgery at . Pending Studies at Discharge: No Stand-Alone Forms: My [facility], Opioid Pain Management, Smoking Cessation Medications and DC Order Prescriptions: New oxycodone 5 mg tablet 5 mg PO Q4H MDD 6 PRN (Reason: pain) Qty: 30 RF: 0 celecoxib [Celebrex] 200 mg Capsule 200 mg PO BID Qty: 60 RF: 0 acetaminophen [Tylenol Extra Strength] 500 mg Tablet 1,000 mg PO Q8 Qty: 60 RF: 0 aspirin 325 mg Tablet,Delayed Release (Dr/Ec) 325 mg PO BID Qty: 60 RF: 0 Continued cholecalciferol (vitamin D3) 1,000 unit capsule 1,000 units PO DAILY Qty: 30 RF: 0 sildenafil (antihypertensive) 20 mg tablet 20 mg PO DAILY MDD 5 TABS PRN (Reason: sexual activity) Qty: 90 RF: 0 multivitamin [Daily Multi-Vitamin] tablet 1 tab PO DAILY RF: 0 efinaconazole 10 % solution with applicator 10 % topical DAILY PRN (Reason: TOE FUNGUS) Qty: 4 RF: 0 lisinopril 10 mg tablet 10 mg PO QAM RF: 0 finasteride 5 mg tablet 5 mg PO QAM RF: 0 Discontinued celecoxib 100 mg capsule 100 mg PO BID RF: 0 aspirin 325 mg Tablet 325 mg PO DAILY RF: 0 Discharge Orders: Discharge Order (Routine); Ordered 12/23/18 Ordered By: Tee Mathias Admission Data Admit Date/Time: 12/22/18 10:35 Attending Provider: Michael Barnett Admit Provider: Michael Barnett Primary Care Provider: Yomaira Gar Other Interventions: Discharge Summary Assessment (RN) Last Done: 12/23/18 12:40 DC Date/Time DO NOT enter until pt leaves facility: 12/23/18 15:15
== END 2018-12-23 15:15 | disposition home health service (06) | DRG 470 ==
LOC: ASU 05:23 → 3E 10:35

== ENCOUNTER 2024-10-27 05:55 | Inpatient (IN) ==
--- NOTE | 2024-10-09 08:39 | PAT Medication Instructions ---
Medication Instructions Date of Service October 09, 2024 Home Medications Medication Instructions Recorded lisinopril 10 mg tablet 10 mg PO QAM #90 tabs 01/26/24 sildenafil (pulm.hypertension) 20 20 mg PO ONCE PRN sexual activity 05/16/24 mg tablet #20 tabs celecoxib 100 mg capsule 100 mg PO BID #180 caps 07/14/24 cyclobenzaprine 5 mg tablet 5 mg PO BID PRN muscle spasm #60 08/07/24 tabs diazepam 5 mg tablet 5 mg PO .COMPLEX PRN anxiety #3 08/10/24 tabs gabapentin 300 mg capsule 300 mg PO .COMPLEX #90 caps 08/10/24 multivitamin (Daily Multi-Vitamin tablet) 1 tab PO QAM acetaminophen 500 mg tablet (Tylenol Extra Strength) 1,000 mg PO Q8 PRN cholecalciferol (vitamin D3) 50 mcg (2,000 unit) capsule 50 mcg PO QAM lisinopril 10 mg tablet 10 mg PO QAM sildenafil (pulm.hypertension) 20 mg tablet 20 mg PO ONCE PRN polyethylene glycol 3350 17 gram/dose oral powder (Miralax) 17 g PO DAILY PRN celecoxib 100 mg capsule 100 mg PO BID cyclobenzaprine 5 mg tablet 5 mg PO BID PRN diazepam 5 mg tablet 5 mg PO .COMPLEX PRN gabapentin 300 mg capsule 300 mg PO .COMPLEX aspirin 81 mg tablet,delayed release 81 mg PO DAILY PRN finasteride 5 mg tablet 5 mg PO QAM magnesium 200 mg tablet 200 mg PO HS melatonin 5 mg tablet 5 mg PO HS PRN pantoprazole 40 mg tablet,delayed release (Protonix) 40 mg PO QAM tamsulosin 0.4 mg capsule 0.4 mg PO HS Continue as directed diazepam 5 mg tablet 5 mg PO .COMPLEX PRN(if needed) gabapentin 300 mg capsule 300 mg PO .COMPLEX ASK your surgeon for instructions celecoxib 100 mg capsule 100 mg PO BID ASK your prescriber and surgeon aspirin 81 mg tablet,delayed release 81 mg PO DAILY PRN DO NOT take the morning of surgery multivitamin (Daily Multi-Vitamin tablet) 1 tab PO QAM cholecalciferol (vitamin D3) 50 mcg (2,000 unit) capsule 50 mcg PO QAM lisinopril 10 mg tablet 10 mg PO QAM sildenafil (pulm.hypertension) 20 mg tablet 20 mg PO ONCE PRN polyethylene glycol 3350 17 gram/dose oral powder (Miralax) 17 g PO DAILY PRN Take morning of surgery With a small sip of water, OTHERWISE NOTHING TO EAT OR DRINK AFTER MIDNIGHT: acetaminophen 500 mg tablet (Tylenol Extra Strength) 1,000 mg PO Q8 PRN(if needed) cyclobenzaprine 5 mg tablet 5 mg PO BID PRN(if needed) finasteride 5 mg tablet 5 mg PO QAM pantoprazole 40 mg tablet,delayed release (Protonix) 40 mg PO QAM Take evening before surgery acetaminophen 500 mg tablet (Tylenol Extra Strength) 1,000 mg PO Q8 PRN(if needed) cyclobenzaprine 5 mg tablet 5 mg PO BID PRN(if needed) magnesium 200 mg tablet 200 mg PO HS melatonin 5 mg tablet 5 mg PO HS PRN(if needed) tamsulosin 0.4 mg capsule 0.4 mg PO HS Other Notes If you have any questions please call us at [phone] or [phone] or [phone] or [phone]
--- NOTE | 2024-10-10 11:08 | Anesthesiology Consultation ---
Date of Service October 10, 2024 Assessment & Plan (1) Encounter for pre-operative examination: - awaiting surgeon ordered [place] PCP clearance 10/16/24. - Pt is having 2 procedures, 9-12 and 9-15 staying inpatient till second procedure. Chart Review Chart Review: Pending: Refer to Additional Notes / Consult section and Patient seen in Pre Admission Testing Teaching & Discussion Pre-Anesthesia Teaching/Discussion Notes: Instructed NPO after midnight before surgery, except medications with 15 cc of water. Medication instructions provided according to the PAT guidelines. History Surgery Operation Date: 10/27/24 07:30 Proposed Procedures p L2-L3, L3-L4, L5-S1 Oblique Lumbar Interbody Fusion with Spinal Cord Monitoring - Flash Silva MD Operation Date: 10/30/24 09:30 Proposed Procedures p L2-Pelvis Instrumental Fusion, L2,L3,L4,L[address]amine[address] Navigation and Spinal Cord Monitoring - Flash Silva MD Operation Date: 11/03/24 07:30 Proposed Procedures p Extensive Spine Exposure - Francisco J Bejarano, DO s L2-3, L3-4, L5-S1 Oblique Lumbar Interbody Fusion Spinal Cord Monitoring - Flash Silva MD Operation Date: 11/06/24 07:30 Proposed Procedures p L2-Pelvis Instrumental Fusion, L2,L3,L4,L[address] Navigation and Spinal Cord Monitoring - Flash Silva MD Height/Weight Height: 5 ft 10 in Weight: 94.2 kg Allergies Allergy/AdvReac Type Severity Reaction Status Date / Time No Known Drug Allergies Allergy Verified 10/05/24 12:00 Medications Home Medications Medication Instructions Recorded Confirmed Last Taken multivitamin (Daily Multi-Vitamin 1 tab PO QAM 08/01/18 10/05/24 09/08/21 tablet) acetaminophen 500 mg tablet 1,000 mg PO Q8 PRN Pain 08/02/20 10/05/24 09/07/21 (Tylenol Extra Strength) cholecalciferol (vitamin D3) 50 50 mcg PO QAM 10/21/20 10/05/24 09/08/21 mcg (2,000 unit) capsule lisinopril 10 mg tablet 10 mg PO QAM #90 tabs 01/26/24 10/05/24 Unknown sildenafil (pulm.hypertension) 20 20 mg PO ONCE PRN sexual activity 05/16/24 10/05/24 Unknown mg tablet #20 tabs polyethylene glycol 3350 17 17 g PO DAILY PRN Constipation 06/05/24 10/05/24 Unknown gram/dose oral powder (Miralax) celecoxib 100 mg capsule 100 mg PO BID #180 caps 07/14/24 10/05/24 Unknown cyclobenzaprine 5 mg tablet 5 mg PO BID PRN muscle spasm #60 08/07/24 10/05/24 Unknown tabs diazepam 5 mg tablet 5 mg PO .COMPLEX PRN anxiety #3 08/10/24 08/10/24 Unknown tabs gabapentin 300 mg capsule 300 mg PO .COMPLEX #90 caps 08/10/24 10/05/24 Unknown aspirin 81 mg tablet,delayed 81 mg PO DAILY PRN Pain 10/05/24 10/05/24 Unknown release finasteride 5 mg tablet 5 mg PO QAM 10/05/24 10/05/24 Unknown magnesium 200 mg tablet 200 mg PO HS 10/05/24 10/05/24 Unknown melatonin 5 mg tablet 5 mg PO HS PRN Sleep 10/05/24 10/05/24 Unknown pantoprazole 40 mg tablet,delayed 40 mg PO QAM 10/05/24 10/05/24 Unknown release (Protonix) tamsulosin 0.4 mg capsule 0.4 mg PO HS 10/05/24 10/05/24 Unknown Past Medical History Medical History (Updated 10/10/24 @ 11:46 by Sindy Matthews PA-C) Acid reflux controlled, stable per pt Arthritis BPH (benign prostatic hyperplasia) 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 Exercise / Class Metabolic Activity II 4-5 Yardwork/Stairs/Walk up hill (denies chest discomfort or shortness of breath with one flight of stairs) Past Family History Family History Father Bladder cancer Brother Brain malignant neoplasm Sister Breast cancer Mother Osteoporosis Other No family history of adverse response to anesthesia Denies family history of Ovarian cancer Prostate cancer Diabetes Myocardial infarction Lung cancer Colorectal cancer Stroke Past Surgical History Surgical History H/O inguinal hernia repair right H/O prostate biopsy H/O total knee replacement Left TKA: 10/30/16: SAB x 2 at L2-L3 + PNB at [facility] History of colonoscopy 07/2020 Repeat 5yrs History of esophagogastroduodenoscopy (EGD) History of laparoscopic cholecystectomy History of right knee joint replacement History of tooth extraction Hx of parathyroidectomy 10/18/2023>done d/t over activity ([facility]) Past Anesthesia History No Hx of Anesthesia Complications and No Family Hx of Anesthesia Complications History of PONV No Hx of PONV and Hx of Motion Sickness Social History Smoking Status: Never smoker Do You Dip or Chew Tobacco: No Hx Alcohol Use: No Alcohol type: beer, wine and hard liquor alcohol intake frequency: holidays/special occasions only substance use type: does not use Review of Systems Snoring, denies witnessed apneas. Patient denies chest pain, shortness of breath, dyspnea on exertion, fever, chills, cough, wheezing, or palpitations. Physical Exam Vital Signs Vitals BP 123/86 P 93 TEMP 98.3 SP02 96% on RA RESP 18 Physical Patient resting comfortably in chair in no acute distress, alert and oriented, responding appropriately throughout visit Full cervical extension range of motion without pain TMD 3.5 finger breadths Mallampati Score 3 Dentition: several caps/crowns, denies chipped or loose teeth, implants or bridges Lungs: normal respiratory effort. Good air movement, clear throughout to auscultation, no adventitious breath sounds Cardiac: regular rate and rhythm, no murmurs noted Carotid arteries: negative bruit bilat Lab Results Anesthesia Preop Results Results Anesthesia Widget: WBC 8.82 K/ul (4.8-10.8) 10/09/24 Hgb 16.3 g/dl (14.0-18.0) 10/09/24 Hct 46.6 % (42.0-52.0) 10/09/24 Plt 221 K/uL (130-400) 10/09/24 Na 138 mmol/L (136-145) 10/09/24 K 4.3 mmol/L (3.5-5.1) 10/09/24 Cl 106 mmol/L (98-107) 10/09/24 CO2 27 mmol/L (21-32) 10/09/24 BUN 26 mg/dl (6-23) H 10/09/24 Creat 0.83 mg/dl (0.6-1.4) 10/09/24 Glucose Level 102 mg/dl (70-99(Fasting)) H 10/09/24 PT 11.4 Seconds (9.0-12.0) 10/10/24 PTT 29 Seconds (21-31) 10/10/24 INR 1.1 (0.9-1.1) 10/10/24 HA1c 5.4 % (4.5-5.6) 10/10/24 Blood Type O Negative 10/10/24 Antibody Screen NEGATIVE 10/10/24 Testing Electrocardiogram Date: 10/10/24 NSR, rate 83 bpm Cervical Spine Date: 08/23/24 No acute fracture or traumatic subluxation. Stable trace anterolisthesis at C5-6 No definite cord compression, cord signal abnormality or cord expansion identified Multilevel degenerative changes again seen with varying degrees of canal and bilateral foraminal stenosis, mildly progressed when compared to prior. Canal stenosis is most pronounced at C6-7. No focal disc protrusion identified Heterogeneous thyroid with multiple T2 hyperintense nodules, largest in the left lobe measuring up to 1.1 cm Other Testing Chest CT 12/20/23 1. No acute intrathoracic abnormality. 2. No lymphadenopathy. 3. Stable 9 mm subpleural nodule within the right lower lobe, unchanged from 02/05/2023
[2024-10-27] MEDS: ACETAMINOPHEN 500 MG TAB PO SCH (06:16)
[2024-10-27] MEDS: LR 60ML/HR IV SCH (06:17)
[2024-10-27] MEDS: LR 15ML/HR IV SCH (06:17)
[2024-10-27] MEDS ORDERED: PROPOFOL IV EMULSION 10 MG/ML 20 ML VIAL IV ONE (06:48)
[2024-10-27] MEDS ORDERED: ROCURONIUM BROMIDE 10 MG/ML 5 ML VIAL IV ONE (06:48)
[2024-10-27] MEDS ORDERED: LIDOCAINE 2% 2 ML VIAL/AMP(20MG/ML) INFIL ONE (06:48)
[2024-10-27] MEDS ORDERED: ONDANSETRON INJ 2 MG/ML 2 ML VIAL ONE (06:48)
[2024-10-27] MEDS ORDERED: DEXAMETHASONE SOD INJ 4 MG/ML VIAL ONE (06:48)
[2024-10-27] MEDS ORDERED: MIDAZOLAM HCL 1 MG/ML 2ML VIAL ONE (06:48)
[2024-10-27] MEDS ORDERED: PROPOFOL IV EMULSION 10 MG/ML 100 ML VIAL IV ONE ×3 (06:49→11:00)
[2024-10-27] MEDS ORDERED: REMIFENTANIL HCL 1 MG VIAL IV ONE ×4 (06:49→10:52)
[2024-10-27] MEDS ORDERED: SUCCINYLCHOLINE CHLORIDE 20 MG/ML 10 ML VIAL IV ONE (06:49)
--- NOTE | 2024-10-27 07:31 | History & Physical Bridge Note ---
Date of Service October 27, 2024 History & Physical Bridge Note I have examined the patient, reviewed the History & Physical and in the interval since the performance of the History & Physical I have noted the following changes of clinical significance: no changes noted Plan for staged Anterior Posterior Lumbar interbody fusion L2-3, L3-4, L4-5, L5- S1 with posterior instrumented fusion.
--- NOTE | 2024-10-27 07:38 | History & Physical Report ---
Date of Service October 27, 2024 Assessment & Plan (1) Lumbar radicular pain: Plan: Plan for exposure of L2-S1 interspaces today per Drs. Silva and Justen. History of Present Illness Primary Care Provider: Antwon Farmer DO Asked by Dr. Silva to assist in exposure of L2-S1 spine for orthopedic procedure. Will proceed along with Dr. Campuzano who has done these with Dr. Silva previously. Patient denies any history of stroke or heart attack. Has chronic leg pain consistent with back disease but no lower extremity ischemic symptoms. No prior abdominal surgery. Allergies Allergy/AdvReac Type Severity Reaction Status Date / Time No Known Drug Allergies Allergy Verified 10/27/24 06:05 Home Medications Medication Instructions Recorded Confirmed Type multivitamin (Daily Multi-Vitamin 1 tab PO QAM 08/01/18 10/27/24 History tablet) acetaminophen 500 mg tablet 1,000 mg PO Q8 PRN Pain 08/02/20 10/27/24 History (Tylenol Extra Strength) cholecalciferol (vitamin D3) 50 50 mcg PO QAM 10/21/20 10/27/24 History mcg (2,000 unit) capsule lisinopril 10 mg tablet 10 mg PO QAM #90 tabs 01/26/24 10/27/24 Rx polyethylene glycol 3350 17 17 g PO DAILY PRN Constipation 06/05/24 10/27/24 History gram/dose oral powder (Miralax) celecoxib 100 mg capsule 100 mg PO BID #180 caps 07/14/24 10/27/24 Rx cyclobenzaprine 5 mg tablet 5 mg PO BID PRN muscle spasm #60 08/07/24 10/27/24 Rx tabs gabapentin 300 mg capsule 300 mg PO .COMPLEX #90 caps 08/10/24 10/27/24 Rx aspirin 81 mg tablet,delayed 81 mg PO DAILY PRN Pain 10/05/24 10/27/24 History release finasteride 5 mg tablet 5 mg PO QAM 10/05/24 10/27/24 History magnesium 200 mg tablet 200 mg PO HS 10/05/24 10/27/24 History melatonin 5 mg tablet 5 mg PO HS PRN Sleep 10/05/24 10/27/24 History pantoprazole 40 mg tablet,delayed 40 mg PO QAM 10/05/24 10/27/24 History release (Protonix) tamsulosin 0.4 mg capsule 0.4 mg PO HS 10/05/24 10/27/24 History Past Med/Surg History Problem List Thyroid nodule Lumbar spondylosis Lumbosacral spondylosis with radiculopathy Spondylolisthesis, lumbar region Lumbar radicular pain Lumbar radiculopathy Spinal stenosis of lumbar region Lumbosacral radiculopathy at L5 Neurofibromatosis Primary hyperparathyroidism Pulmonary nodule (~01/2023) Primary osteoarthritis of right knee Hyperlipidemia Benign localized hyperplasia of prostate with urinary obstruction Hypertension (Chronic) Medical History History of cervical fracture BPH (benign prostatic hyperplasia) History of skin cancer Hypertension Hepatic steatosis (~02/06/23) Splenomegaly (~02/06/23) Esophageal dysphagia Cervicogenic headache History of benign thyroid tumor History of colon polyps Acid reflux Arthritis Cerebellar artery occlusion Surgical History H/O prostate biopsy History of esophagogastroduodenoscopy (EGD) History of tooth extraction Hx of parathyroidectomy History of right knee joint replacement History of colonoscopy History of laparoscopic cholecystectomy H/O inguinal hernia repair H/O total knee replacement Family History Father Bladder cancer Brother Brain malignant neoplasm Sister Breast cancer Mother Osteoporosis Other No family history of adverse response to anesthesia Denies family history of Ovarian cancer Prostate cancer Diabetes Myocardial infarction Lung cancer Colorectal cancer Stroke Social History Smoking Status: Never smoker Second Hand Exposure: Yes (as a child); Do You Dip or Chew Tobacco: No; Hx Alcohol Use: No Preferred Language: Kinyarwanda Communication Ability: Effective Visual Impairment: Partially Limited Hearing Ability: Normal Wrap Checker Required: No Beliefs That Will Affect Care: None marital status: Current Living Situation: Spouse current occupational status: retired How many Children do You have: 4 Feels Safe at Home: Yes Safety Concerns: Feels Safe At This Time Childhood Exposure to Second-Hand Smoke: Yes Diet: regular caffeine: Yes during the past year weight has: increased > 10 lbs Dental Care, Regularly: Yes Physical Activity Frequency: 3-4 Times per Week Seatbelt Use: always Sunscreen Use: Yes Assistive Devices: Glasses Assistive Devices Comment: glasses for driving Physical Exam Physical Exam: Abdomen soft, nontender. Normal femoral pulses bilaterally. Palpable left PT and right dp (has STORMY hose on). Results & Data Vital Signs (Past 12 Hours) Vital Signs Temp Pulse Resp BP Pulse Ox O2 Del Method 10/27/24 06:20 36.6 C 93 H 18 131/99 95 Room Air PG Care Time/CCT Total # of Minutes Spent Total Time Spent with Patient: Total time spent is greater than 50% in coordination of care (as documented) at patient's floor/unit and/or counseling patient: Coding Level of Care Code 15033 INT INP/OBS CARE 3MIN Diagnoses Lumbar radicular pain M54.16
[2024-10-27] MEDS ORDERED: KETAMINE HCL 10MG/ML SYR ONE ×2 (08:32→09:23)
[2024-10-27] MEDS ORDERED: HYDROmorphone INJ 2 MG/ML SYR/VIAL ONE ×2 (11:24→12:56)
[2024-10-27] MEDS ORDERED: ceFAZolin 330 MG/ML 1 GM VIAL ONE (12:10)
[2024-10-27] MEDS ORDERED: SUGAMMADEX SODIUM 200 MG/2 ML VIAL IV ONE (12:17)
[2024-10-27] MEDS: VANCOMYCIN HCL 1000MG/20ML VIAL ONE (12:26)
[2024-10-27] MEDS: FLOSEAL HEMOSTATIC MATRIX 10ML TOP ONE (12:36)
[2024-10-27] MEDS: BUPIVACAINE 0.5 % 5 MG/1 ML MPF 30ML VIAL ONE (13:14)
--- NOTE | 2024-10-27 13:22 | Post Operative Brief Note ---
PG Immediate Post Op with CF Date of Surgery October 27, 2024 Pre & Post Diagnosis Operation Date: 11/06/24 07:30 Lumbar Spondylosis Lumbar Spondylolisthesis Lumbar Neurogenic Claudication I identified the patient and participated in the time-out.: Yes Procedure Operation Date: 11/06/24 07:30 Anterior Lumbar Interbody Fusion L42-3, L3-4, L4-5, L5-S1 Surgeon Flash Silva MD Clerical Adjuster Rachid Campuzano MD Estimated Blood Loss 200 Findings Consistent with Post-Op Diagnosis Specimens Specimen Description: No specimen per surgeons Drains Lopez Catheter (Inserted prior to procedure start by Jadyn Ramires RN; 10cc in balloon; clear, yellow urine returned; leg strap applied) Anesthesia Type General Complications none Disposition Disposition: Recovery Room
[2024-10-27] MEDS: HYDROmorphone INJ 1 MG/ML SYRINGE IV PRN ×2 (13:40→15:57)
--- NOTE | 2024-10-27 13:43 | Operative Report ---
Post Operative Report Pre & Post Diagnosis Lumbar spondylolisthesis Lumbar spondylosis Lumbar stenosis with neurogenic claudication Lumbar radiculopathy I identified the patient and participated in the time-out.: Yes Procedure Anterior lumbar interbody fusion L5-S1 () Insertion of interbody spacer for fusion L5-S1 () Anterior lumbar interbody fusion via oblique approach L4-5() Insertion of interbody spacers patient had L4-5 () Anterior lumbar interbody fusion oblique approach L3-4 () Insertion of interbody spacer for fusion of L3-4 ([id number]) Anterior lumbar interbody fusion oblique approach L2-3 () Insertion of interbody spacer for fusion of L2-3 () Use of Allograft for Spinal Fusion () Implants: Nikki Tang Surgeon Flash Silva MD Chemist Enzymes Rachid Campuzano MD Estimated Blood Loss 200 Findings Consistent with Post-Op Diagnosis Specimens None Drains None Anesthesia Type General Complications none Disposition Disposition: Recovery Room Indications Patient admitted stating where he had intractable pain with care. Risks and benefits of proceeding with epidural injections, continued observation versus anterior posterior lumbar interbody fusion were discussed. After discussion of risks and benefits the patient elected to proceed with staged lumbar fusion and decompression. Description of Procedure PROCEDURE IN DETAIL: Informed consent was obtained. They were taken to the operating room and anesthesia was initiated. Neuromonitoring was utilized, including running electromyography and triggered electromyography. Antibiotics were administered. A timeout was performed. Preoperative fluoroscopy was used to otto the disc spaces and approximated incision. Incision was made in the lower abdominal region, fascia was split, retroperitoneal approach was performed to the anterior lumbar spine at L5-S1. Needle was placed in the interspace to verify correct level. A retractor was then placed between the iliac vessels, which were held back safely out of the way. A complete discectomy was then performed at L5-S1 removing the cartilaginous endplates. Rasp was used to obtain bleeding endplate bone at L5 and S1. Trials were utilized to select appropriate size implant. Implant was selected, path with allograft material and implanted under fluoroscopy. Was placed through the cage. The cage to the L5 vertebral body. A separate fascial incision was performed over the lateral aspect of the abdomen, fascia was split, I dissected between the external oblique, internal oblique and retroperitoneal space. Blunt down to the lateral edge of the lumbar spine. The psoas was mobilized posteriorly to protect the lumbar plexus and expose the anterolateral disc. A total diskectomy was completed at L4-5 using a combination of curettes, rongeurs and pituitaries. The endplates were prepared. An interbody spacer was selected and implanted after being packed with allograft materials. The retractor was repositioned. The psoas was retracted posteriorly to protect the lumbar plexus. A total diskectomy was completed at L2-3 using a combination of curettes, rongeurs and pituitaries. The endplates were prepared. An interbody spacer was selected and implanted after being packed with allograft materials. The retractors were then moved to the L3-4 level. The psoas was retracted posteriorly to protect the lumbar plexus. A total diskectomy was completed at L3-4 using a combination of curettes, rongeurs and pituitaries. The endplates were prepared. An interbody spacer was selected and implanted after being packed with allograft materials. X-rays confirmed appropriate position of the spacers. Both fascial incisions were then irrigated well. The oblique musculature of the abdomen was reapproximated with PDS suture. The fascia was closed again PDS suture. Skin closed with Vicryl and Monocryl as well as Dermabond. Lower abdominal fascial incision was also closed with PDS suture. Subcutaneous cutaneous layer were closed with Vicryl and Monocryl. Dermabond applied over the skin incisions. Sterile dressing placed. Patient was awakened from anesthesia without complication and taken to PACU. Will plan for posterior instrumentation after the weekend. I attest to the content of the Intraoperative Record and any orders documented therein. Any exceptions are noted below.
[2024-10-27] MEDS ORDERED: PROMETHAZINE HCL 6.25 MG in SODIUM CHLORIDE 0.9% 50 ML IV PRN (13:48)
[2024-10-27] MEDS ORDERED: FLUMAZENIL 0.1 MG/1 ML 10 ML VIAL IV PRN (13:48)
[2024-10-27] MEDS ORDERED: ONDANSETRON INJ 2 MG/ML 2 ML VIAL IV PRN (13:48)
[2024-10-27] MEDS ORDERED: ATROPINE SULFATE 0.1 MG/ML 10ML SYR IV PRN (13:48)
[2024-10-27] MEDS ORDERED: NALOXONE HCL 0.4 MG/1 ML VIAL/CARP IV PRN ×2 (13:48→14:54)
[2024-10-27] MEDS ORDERED: LABETALOL HCL IV 5 MG/ML 20ML IV PRN (13:48)
--- NOTE | 2024-10-27 13:57 | Fluoroscopy Report ---
FL lumbar spine 2-3V CLINICAL HISTORY: L2-4, L5-S1 INTERBODY FUSION COMPARISON STUDY: None pertinent FLUOROSCOPY TIME: 2 minutes and 29 seconds FLUOROSCOPY IMAGES: 4 EXPOSURE DOSE: 113.19 mGy FINDINGS: Fluoroscopic guidance provided for multilevel lumbar spine procedure. IMPRESSION: Refer to the procedure report for evaluation based upon real-time fluoroscopic observatio n. ACT 112: Negative or not required by law. Electronically signed by: Margie Amezcua M.D. 10/27/2024 1:55 PM
--- NOTE | 2024-10-27 14:48 | Anesthesiology Progress Note ---
Date of Service October 27, 2024 Anesthesia Post Procedure Vital Signs Vital Signs: Temp Pulse Resp BP Pulse Ox O2 Del Method O2 Flow Rate 10/27/24 14:35 99 H 15 122/86 95 Nasal Cannula 4 10/27/24 14:25 101 H 15 105/67 95 Nasal Cannula 4 10/27/24 14:15 36.3 C L 99 H 15 108/67 95 Nasal Cannula 4 10/27/24 14:05 105 H 15 122/78 95 Nasal Cannula 10/27/24 13:55 99 H 15 131/80 95 Nasal Cannula 4 10/27/24 13:45 108 H 15 125/80 95 Oxymask 10 10/27/24 13:35 110 H 15 118/80 95 Oxymask 10 10/27/24 13:26 36.6 C 105 H 18 98/66 L 95 Oxymask 10 10/27/24 06:20 36.6 C 93 H 18 131/99 95 Room Air Pain Intensity Lower Back: Pain Intensity: 3 Transfer of Care Handoff Completed per policy Notes Mental Status: alert / awake / arousable Patient Amnestic to Procedure: Yes Nausea / Vomiting: adequately controlled Pain: adequately controlled Airway Patency, RR, SpO2: stable & adequate BP & HR: stable & adequate Hydration State: stable & adequate Anesthetic Complications: no major complications apparent
[2024-10-27] MEDS ORDERED: ALUMINUM/MAGNESIUM SUSP 30 ML UDC PO PRN (14:54)
[2024-10-27] MEDS ORDERED: HYDROmorphone INJ 0.5 MG/0.5 ML SYR IV PRN (14:54)
[2024-10-27] MEDS ORDERED: FAMOTIDINE 20 MG TAB PO PRN (14:54)
[2024-10-27] MEDS ORDERED: DO NOT ADMINISTER FLU VACCINE PRN (14:54)
[2024-10-27] MEDS ORDERED: SOD PHOSPHATE/SOD BIPHOSPHATE ENEMA 132 ML BTL PR PRN (14:54)
[2024-10-27] MEDS ORDERED: METOCLOPRAMIDE HCL INJ 5 MG/ML 2 ML VIAL IV PRN (14:54)
[2024-10-27] MEDS ORDERED: MAGNESIUM HYDROXIDE SUSP 30 ML UDC PO PRN (14:54)
[2024-10-27] MEDS ORDERED: CYCLOBENZAPRINE HCL 10 MG TAB PO PRN (14:54)
[2024-10-27] MEDS ORDERED: DO NOT ADMINISTER PNEUMOCOCCAL VACCINE PRN (14:54)
[2024-10-27] MEDS ORDERED: LORazepam 0.5 MG TAB PO PRN (14:54)
[2024-10-27] MEDS ORDERED: diphenhydrAMINE Capsule 25 MG CAP PO PRN (14:54)
[2024-10-27] MEDS ORDERED: MELATONIN 3 MG TAB PO PRN (15:06)
[2024-10-27] MEDS: LACTATED RINGER'S 1,000 ML IV SCH (15:10)
[2024-10-27] MEDS: HYDROmorphone INJ 1 MG/ML SYRINGE ONE ×2 (15:12)
[2024-10-27] MEDS: dexAMETHasone 6 MG in SYRINGE 0 ML IV SCH (15:48)
[2024-10-27] MEDS: GABAPENTIN 300 MG CAP PO SCH (15:49)
--- NOTE | 2024-10-27 16:25 | Hospitalist Consultation ---
Date of Consultation October 27, 2024 Assessment & Plan (1) Hypertension: (2) Hyperlipidemia: (3) Spinal stenosis of lumbar region: (4) Acid reflux: (5) BPH (benign prostatic hyperplasia): (6) Lumbar radiculopathy: Plan Spinal stenosis with lumbar radiculopathy s/p OLIF 10/27, planned staged operation with return to the OR on Wednesday VTE and pain management per primary ortho spine - discussed with Dr Silva and will add scheduled acetaminophen Sinus tachycardia suspect related to his pain and post operatively, back pain 2/3, lower abdominal pain 6/10 worse when moving over incision site should resolve with improved pain control post operative hemoglobin normal BPH Continue finasteride Hypertension Holding Lisinopril pending blood pressures overnight VTE Prophylaxis and disposition - per primary orthopedics team History of Present Illness Reason for Consultation: s/p Anterior Lumbar fusion, planned return to OR Attending Physician: Flash Silva MD History of Present Illness Chirag Casey is a 74 year old male status post oblique lateral interbody fusion performed by Dr Silva earlier today 10/27/2024. The patient reports pre- operative lumbar radicular pain has resolved. Having back pain 2/3, lower abdominal pain 6/10 worse when moving over incision site. No prior stroke or heart attack. On lisinopril for BP which he held today, pantoprazole for GERD (under control) and finasteride for his prostate. His other medications and for his back pain. Allergies Allergy/AdvReac Type Severity Reaction Status Date / Time No Known Drug Allergies Allergy Verified 10/27/24 06:05 Home Medications Medication Instructions Recorded Confirmed Type multivitamin (Daily Multi-Vitamin 1 tab PO QAM 08/01/18 10/27/24 History tablet) acetaminophen 500 mg tablet 1,000 mg PO Q8 PRN Pain 08/02/20 10/27/24 History (Tylenol Extra Strength) cholecalciferol (vitamin D3) 50 50 mcg PO QAM 10/21/20 10/27/24 History mcg (2,000 unit) capsule lisinopril 10 mg tablet 10 mg PO QAM #90 tabs 01/26/24 10/27/24 Rx polyethylene glycol 3350 17 17 g PO DAILY PRN Constipation 06/05/24 10/27/24 History gram/dose oral powder (Miralax) celecoxib 100 mg capsule 100 mg PO BID #180 caps 07/14/24 10/27/24 Rx cyclobenzaprine 5 mg tablet 5 mg PO BID PRN muscle spasm #60 08/07/24 10/27/24 Rx tabs gabapentin 300 mg capsule 300 mg PO .COMPLEX #90 caps 08/10/24 10/27/24 Rx aspirin 81 mg tablet,delayed 81 mg PO DAILY PRN Pain 10/05/24 10/27/24 History release finasteride 5 mg tablet 5 mg PO QAM 10/05/24 10/27/24 History magnesium 200 mg tablet 200 mg PO HS 10/05/24 10/27/24 History melatonin 5 mg tablet 5 mg PO HS PRN Sleep 10/05/24 10/27/24 History pantoprazole 40 mg tablet,delayed 40 mg PO QAM 10/05/24 10/27/24 History release (Protonix) tamsulosin 0.4 mg capsule 0.4 mg PO HS 10/05/24 10/27/24 History Patient History Medical History History of cervical fracture BPH (benign prostatic hyperplasia) History of skin cancer Hypertension Hepatic steatosis (~02/06/23) Splenomegaly (~02/06/23) Esophageal dysphagia Cervicogenic headache History of benign thyroid tumor History of colon polyps Acid reflux Arthritis Cerebellar artery occlusion Surgical History H/O prostate biopsy History of esophagogastroduodenoscopy (EGD) History of tooth extraction Hx of parathyroidectomy History of right knee joint replacement History of colonoscopy History of laparoscopic cholecystectomy H/O inguinal hernia repair H/O total knee replacement Family History Father Bladder cancer Brother Brain malignant neoplasm Sister Breast cancer Mother Osteoporosis Other No family history of adverse response to anesthesia Denies family history of Ovarian cancer Prostate cancer Diabetes Myocardial infarction Lung cancer Colorectal cancer Stroke Social History Smoking Status: Never smoker Second Hand Exposure: Yes (as a child); Do You Dip or Chew Tobacco: No; Hx Alcohol Use: No Preferred Language: Maltese Communication Ability: Effective Visual Impairment: Partially Limited Hearing Ability: Normal Glassworker Required: No Beliefs That Will Affect Care: None marital status: Current Living Situation: Spouse current occupational status: retired How many Children do You have: 4 Feels Safe at Home: Yes Safety Concerns: Feels Safe At This Time Childhood Exposure to Second-Hand Smoke: Yes Diet: regular caffeine: Yes during the past year weight has: increased > 10 lbs Dental Care, Regularly: Yes Physical Activity Frequency: 3-4 Times per Week Seatbelt Use: always Sunscreen Use: Yes Assistive Devices: None Assistive Devices Comment: glasses for driving Physical Exam Constitutional: WD/WN, vitals as above Respiratory: normal respiratory effort, lungs clear to auscultation Cardiovascular: RRR, no murmur, no edema Gastrointestinal (Abdomen): Inspection/Auscultation: + abdomen abnormal to inspection (lower abdominal surgical dressing is clean and dry) Percussion/Palpation: abdomen soft; abdomen nontender (upper abdomen (lower abdomen not palpated)), no guarding and abdomen not rigid Musculoskeletal: ankle plantar/dorsiflexion 5/5 with normal sensation in toes Results & Data Results & Data Vital Signs (Past 12 Hours) Vital Signs Temp Pulse Pulse Resp BP Pulse Ox O2 Del Method 10/27/24 15:53 115 H 16 131/89 93 Nasal Cannula 10/27/24 15:20 115 H 16 142/80 H 93 Nasal Cannula 10/27/24 15:15 Nasal Cannula 10/27/24 14:57 36.5 C 110 H 16 126/80 93 Nasal Cannula 10/27/24 14:35 99 H 15 122/86 95 Nasal Cannula 10/27/24 14:25 101 H 15 105/67 95 Nasal Cannula 10/27/24 14:15 36.3 C L 99 H 15 108/67 95 Nasal Cannula 10/27/24 14:05 105 H 15 122/78 95 Nasal Cannula 10/27/24 13:55 99 H 15 131/80 95 Nasal Cannula 10/27/24 13:45 108 H 15 125/80 95 Oxymask 10/27/24 13:35 110 H 15 118/80 95 Oxymask 10/27/24 13:26 36.6 C 105 H 18 98/66 L 95 Oxymask 10/27/24 06:20 36.6 C 93 H 18 131/99 95 Room Air O2 Flow Rate 10/27/24 15:53 2 10/27/24 15:20 2 10/27/24 15:15 3 10/27/24 14:57 3 10/27/24 14:35 4 10/27/24 14:25 4 10/27/24 14:15 4 10/27/24 14:05 4 10/27/24 13:55 4 10/27/24 13:45 10 10/27/24 13:35 10 10/27/24 13:26 10 10/27/24 06:20 PG Care Time/CCT Total # of Minutes Spent Total Time Spent with Patient: Total time spent is greater than 50% in coordination of care (as documented) at patient's floor/unit and/or counseling patient: Coding Level of Care Code 81329 IN/OBS CONSULT LVL 3,45M Diagnoses Hypertension I10 Hyperlipidemia E78.5 Spinal stenosis of lumbar region, unspecified whether neurogenic claudication present M48.061 Neurogenic claudication status: unspecified Acid reflux K21.9 BPH (benign prostatic hyperplasia) N40.0 Lumbar radiculopathy M54.16 (3) Spinal stenosis of lumbar region Neurogenic claudication status: unspecified Qualified Code(s): M48.061 - Spinal stenosis, lumbar region without neurogenic claudication
[2024-10-27 16:32] LABS: Hematocrit (blood only) 44.1 % (42.0-52.0); Hemoglobin 15.3 g/dl (14.0-18.0); Mean Corpuscular Hemoglobin 28.3 pg (25.0-34.0); Mean Corpuscular Volume 81.5 fL (80.0-100.0); Platelet Count 231 K/uL (130-400); RDW Standard Deviation 37.7 fL (36.4-46.3); Red Blood Count 5.41 M/uL (4.70-6.10); White Blood Count 19.52 K/ul (4.8-10.8)
[2024-10-27 16:48] LABS: Anion Gap 9.0 (3-11); Blood Urea Nitrogen 18.0 mg/dl (6-23); Calcium 8.8 mg/dl (8.6-10.3); Carbon Dioxide 23.0 mmol/L (21-32); Chloride 106.0 mmol/L (98-107); Creatinine Clr Calc Pharmacy 79.3 ml/min; Glucose 193.0 mg/dl (70-99(Fasting)); Potassium 3.9 mmol/L (3.5-5.1); Sodium 138.0 mmol/L (136-145)
[2024-10-27 16:57] LABS: Immature Granulocytes # (auto) 0.14 K/uL (0.01-0.20); Immature Granulocytes % (auto) 0.7 %
[2024-10-27] MEDS: ACETAMINOPHEN 1,000 MG/100 ML VIAL IV SCH (17:23)
--- NOTE | 2024-10-27 17:55 | Electrocardiogram Report ---
Test Reason : Blood Pressure : */* mmHG Vent. Rate : 113 BPM Atrial Rate : 113 BPM P-R Int : 188 ms QRS Dur : 92 ms QT Int : 328 ms P-R-T Axes : 58 41 28 degrees QTcB Int : 449 ms Sinus tachycardia Otherwise normal ECG When compared with ECG of 10-Oct-2024 11:56, Nonspecific T wave abnormality now evident in Inferior leads T wave amplitude has decreased in Lateral leads Confirmed by Emiliano Reece ([id number]) on 10/27/2024 5:55:47 PM Referred By: Flash Silva Confirmed By: Emiliano Reece
[2024-10-27] MEDS: DOCUSATE SODIUM/SENNA 50/8.6MG TAB PO SCH (20:09)
[2024-10-27] MEDS: MAGNESIUM OXIDE 400 MG TAB PO SCH (20:10)
[2024-10-27] MEDS: TAMSULOSIN HCL 0.4 MG CAP PO SCH (20:11)
[2024-10-27] MEDS: ONDANSETRON INJ 2 MG/ML 2 ML VIAL IV PRN (20:25)
[2024-10-28] MEDS: POLYETHYLENE (MIRALAX) 17 GM PACK PO SCH (05:02)
[2024-10-28 06:24] LABS: Hematocrit (blood only) 40.9 % (42.0-52.0); Hemoglobin 13.9 g/dl (14.0-18.0); Immature Granulocytes # (auto) 0.18 K/uL (0.01-0.20); Immature Granulocytes % (auto) 0.9 %; Mean Corpuscular Hemoglobin 27.8 pg (25.0-34.0); Mean Corpuscular Volume 81.8 fL (80.0-100.0); Platelet Count 226 K/uL (130-400); RDW Standard Deviation 37.7 fL (36.4-46.3); Red Blood Count 5.00 M/uL (4.70-6.10); White Blood Count 19.48 K/ul (4.8-10.8)
[2024-10-28 06:45] LABS: Anion Gap 7.0 (3-11); Blood Urea Nitrogen 15.0 mg/dl (6-23); Calcium 9.1 mg/dl (8.6-10.3); Carbon Dioxide 27.0 mmol/L (21-32); Chloride 103.0 mmol/L (98-107); Creatinine Clr Calc Pharmacy 77.6 ml/min; Glucose 156.0 mg/dl (70-99(Fasting)); Potassium 4.1 mmol/L (3.5-5.1); Sodium 137.0 mmol/L (136-145)
[2024-10-28] MEDS: FINASTERIDE 5 MG TAB PO SCH (08:00)
[2024-10-28] MEDS: CHOLECALCIFEROL 25 MCG (1000 UNITS) TAB PO SCH (08:00)
[2024-10-28] MEDS: ENOXAPARIN INJ 40 MG/0.4 ML SYR SQ SCH (08:01)
--- NOTE | 2024-10-28 08:01 | Orthopedic Progress Note ---
Date of Service October 28, 2024 Assessment & Plan (1) S/P lumbar fusion: (2) Spondylolisthesis, lumbar region: (3) Lumbosacral spondylosis with radiculopathy: Plan start lovenox today, last does tomorrow morning advance diet as tolerated ok to remove garcia when mobilizes Ambulate short distances around room with PT plan for return to OR Wednesday pain control, scds appreciate hospitalist evaluation and assistance Subjective s/p Anterior lumbar fusion L2-S1, incisional pain as expected, passing flatus, no nausea and vomiting. Reports back and incisional pain but no radicular pain. Review of Systems All systems reviewed & are unremarkable except as noted in HPI & below. Physical Exam 5/5 L2-S1 dermatoma, mild psoas pain with hip flexion SILT L2-S1 dressings c/d/i garcia in place Results & Data Results & Data Laboratory Results . Diagnostic Findings . PG Care Time/CCT Total # of Minutes Spent Total Time Spent with Patient: Total time spent is greater than 50% in coordination of care (as documented) at patient's floor/unit and/or counseling patient: Coding Level of Care Code 58526 Post Operative Follow-Up Diagnoses S/P lumbar fusion Z98.1 Spondylolisthesis, lumbar region M43.16 Lumbosacral spondylosis with radiculopathy M47.27
[2024-10-28] MEDS: ONDANSETRON 4 MG OD TAB PO PRN (11:21)
--- NOTE | 2024-10-28 16:02 | Hospitalist Progress Note ---
Date of Service October 28, 2024 Assessment & Plan (1) Hypertension: (2) Hyperlipidemia: (3) Spinal stenosis of lumbar region: (4) Acid reflux: (5) BPH (benign prostatic hyperplasia): (6) Lumbar radiculopathy: Plan Spinal stenosis with lumbar radiculopathy s/p OLIF 10/27, planned staged operation with return to the OR on Wednesday VTE and pain management per primary ortho spine - discussed with Dr Silva and will add scheduled acetaminophen Sinus tachycardia suspect related to his pain and post operative state, hemoglobin stable Not concerning but please notify medical team if sustained HR > 120 BPH Continue finasteride Hypertension Continue off lisinopril with his current BP 113/73 VTE Prophylaxis and disposition - per primary orthopedics team Admission and Anticipated Discharge Date Admission Date: October 27, 2024 Subjective Labs reviewed. Ongoing back and incision pain (per ortho spine note to be expected). Not much hip flexion pain. No dizziness or lightheadedness. Physical Exam Respiratory: normal respiratory effort, lungs clear to auscultation Cardiovascular: RRR, no murmur, no edema Results & Data Results & Data Vital Signs (Past 12 Hours) Vital Signs Temp Pulse Resp BP Pulse Ox O2 Del Method 10/28/24 14:57 36.6 C 100 H 18 138/82 95 Room Air 10/28/24 12:41 36.5 C 99 H 18 154/87 H 95 Room Air 10/28/24 07:36 36.7 C 105 H 18 113/73 94 Room Air PG Care Time/CCT Total # of Minutes Spent Total Time Spent with Patient: Total time spent is greater than 50% in coordination of care (as documented) at patient's floor/unit and/or counseling patient: Coding Level of Care Code 37863 SUB INP/OBS CARE 03/18MIN Diagnoses Hypertension I10 Hyperlipidemia E78.5 Spinal stenosis of lumbar region, unspecified whether neurogenic claudication present M48.061 Neurogenic claudication status: unspecified Acid reflux K21.9 BPH (benign prostatic hyperplasia) N40.0 Lumbar radiculopathy M54.16 (3) Spinal stenosis of lumbar region Neurogenic claudication status: unspecified Qualified Code(s): M48.061 - Spinal stenosis, lumbar region without neurogenic claudication
[2024-10-29 06:26] LABS: Hematocrit (blood only) 40.0 % (42.0-52.0); Hemoglobin 13.6 g/dl (14.0-18.0); Immature Granulocytes # (auto) 0.10 K/uL (0.01-0.20); Immature Granulocytes % (auto) 0.6 %; Mean Corpuscular Hemoglobin 27.6 pg (25.0-34.0); Mean Corpuscular Volume 81.3 fL (80.0-100.0); Platelet Count 201 K/uL (130-400); RDW Standard Deviation 37.5 fL (36.4-46.3); Red Blood Count 4.92 M/uL (4.70-6.10); White Blood Count 15.46 K/ul (4.8-10.8)
[2024-10-29 06:50] LABS: Anion Gap 5.0 (3-11); Blood Urea Nitrogen 19.0 mg/dl (6-23); Calcium 8.7 mg/dl (8.6-10.3); Carbon Dioxide 28.0 mmol/L (21-32); Chloride 102.0 mmol/L (98-107); Creatinine Clr Calc Pharmacy 106.1 ml/min; Glucose 129.0 mg/dl (70-99(Fasting)); Potassium 4.3 mmol/L (3.5-5.1); Sodium 135.0 mmol/L (136-145)
[2024-10-29] MEDS: ACETAMINOPHEN 500 MG TAB PO PRN (07:27)
--- NOTE | 2024-10-29 11:35 | Orthopedic Progress Note ---
Date of Service October 29, 2024 Assessment & Plan (1) S/P lumbar fusion: (2) Lumbar spondylosis: Plan Hold lovenox tomorrow NPo midnight SCDs will order standing xrays later today Plan for posterior fusion tomorrow Subjective s/p Anterior lumbar fusion , moving well with PT. No BM but passing flatus. Incisional pain but no leg pain other than some psoas pain. Review of Systems All systems reviewed & are unremarkable except as noted in HPI & below. Physical Exam 5/5 strength bilateral LE SILT L2-S1 dermatomes dressings c/d/i Results & Data Results & Data Laboratory Results . Diagnostic Findings . PG Care Time/CCT Total # of Minutes Spent Total Time Spent with Patient: Total time spent is greater than 50% in coordination of care (as documented) at patient's floor/unit and/or counseling patient: Coding Level of Care Code 41928 Post Operative Follow-Up Diagnoses S/P lumbar fusion Z98.1 Lumbar spondylosis M47.816
[2024-10-29] MEDS: POLYETHYLENE (MIRALAX) 17 GM PACK PO PRN (11:48)
--- NOTE | 2024-10-29 14:07 | XRay Report ---
STANDING AP AND LATERAL LUMBAR SPINE RADIOGRAPHS CLINICAL HISTORY: weight bearing s/p anterior fusion, AP and Lat COMPARISON STUDY: Lumbar spine radiographs July 26, 2023. Lumbar spine MRI August 23, 2024. Lumbar spine fluoroscopic images October 27, 2024. FINDINGS: Vertebral body heights are maintained. There are no lumbar spine fractures. There are posto perative findings consistent with L2-L3, L3-L4, L4-L5 and L5-S1 interbody fusion. Spacers are in plac e. Hardware is intact. No unexpected radiopaque foreign bodies. IMPRESSION: Expected findings following multilevel lumbar fusion, as described above. Hardware intac t. No unexpected radiopaque foreign bodies. No fractures. ACT 112: Negative or not required by law. Electronically signed by: Bowen Berman M.D. 10/29/2024 2:04 PM
--- NOTE | 2024-10-29 14:14 | Hospitalist Progress Note ---
Date of Service October 29, 2024 Assessment & Plan (1) Hypertension: (2) Hyperlipidemia: (3) Spinal stenosis of lumbar region: (4) Acid reflux: (5) BPH (benign prostatic hyperplasia): (6) Lumbar radiculopathy: Plan 10/29 no change to medications Spinal stenosis with lumbar radiculopathy s/p OLIF 10/27, planned staged operation with return to the OR on Wednesday VTE and pain management per primary ortho spine - discussed with Dr Silva and will add scheduled acetaminophen Sinus tachycardia suspect related to his pain and post operative state, hemoglobin stable Not concerning but please notify medical team if sustained HR > 120 BPH Continue finasteride Hypertension Continue off lisinopril pending surgery tomorrow VTE Prophylaxis and disposition - per primary orthopedics team Admission and Anticipated Discharge Date Admission Date: October 27, 2024 Subjective Labs reviewed. No acute concerns or questions. Surgical scar pain improving. Not yet had a bowel movement but passing gas. Physical Exam Respiratory: normal respiratory effort, lungs clear to auscultation Cardiovascular: RRR, no murmur, no edema Results & Data Results & Data Vital Signs (Past 12 Hours) Vital Signs Temp Pulse Resp BP Pulse Ox O2 Del Method 10/29/24 07:13 36.8 C 74 18 129/83 98 Room Air PG Care Time/CCT Total # of Minutes Spent Total Time Spent with Patient: Total time spent is greater than 50% in coordination of care (as documented) at patient's floor/unit and/or counseling patient: Coding Level of Care Code 21280 SUB INP/OBS CARE 2/35MIN Diagnoses Hypertension I10 Hyperlipidemia E78.5 Spinal stenosis of lumbar region, unspecified whether neurogenic claudication present M48.061 Neurogenic claudication status: unspecified Acid reflux K21.9 BPH (benign prostatic hyperplasia) N40.0 Lumbar radiculopathy M54.16 (3) Spinal stenosis of lumbar region Neurogenic claudication status: unspecified Qualified Code(s): M48.061 - Spinal stenosis, lumbar region without neurogenic claudication
[2024-10-29] MEDS: PROMETHAZINE 12.5 MG/50.5 ML BAG IV PRN (18:26)
[2024-10-30 06:48] LABS: Hematocrit (blood only) 39.6 % (42.0-52.0); Hemoglobin 13.7 g/dl (14.0-18.0); Immature Granulocytes # (auto) 0.06 K/uL (0.01-0.20); Immature Granulocytes % (auto) 0.5 %; Mean Corpuscular Hemoglobin 27.8 pg (25.0-34.0); Mean Corpuscular Volume 80.5 fL (80.0-100.0); Platelet Count 207 K/uL (130-400); RDW Standard Deviation 35.9 fL (36.4-46.3); Red Blood Count 4.92 M/uL (4.70-6.10); White Blood Count 12.54 K/ul (4.8-10.8)
[2024-10-30 07:09] LABS: Anion Gap 5.0 (3-11); Blood Urea Nitrogen 17.0 mg/dl (6-23); Calcium 8.8 mg/dl (8.6-10.3); Carbon Dioxide 29.0 mmol/L (21-32); Chloride 101.0 mmol/L (98-107); Creatinine Clr Calc Pharmacy 101.7 ml/min; Glucose 111.0 mg/dl (70-99(Fasting)); Potassium 4.1 mmol/L (3.5-5.1); Sodium 135.0 mmol/L (136-145)
[2024-10-30] MEDS ORDERED: ONDANSETRON INJ 2 MG/ML 2 ML VIAL ONE (07:09)
[2024-10-30] MEDS ORDERED: DEXAMETHASONE SOD INJ 4 MG/ML VIAL ONE (07:09)
[2024-10-30] MEDS ORDERED: LIDOCAINE 2% 2 ML VIAL/AMP(20MG/ML) INFIL ONE (07:09)
[2024-10-30] MEDS ORDERED: ROCURONIUM BROMIDE 10 MG/ML 5 ML VIAL IV ONE (07:09)
[2024-10-30] MEDS ORDERED: GLYCOPYRROLATE 0.2 MG/ML VIAL ONE (07:09)
[2024-10-30] MEDS ORDERED: PROPOFOL IV EMULSION 10 MG/ML 20 ML VIAL IV ONE (07:09)
[2024-10-30] MEDS ORDERED: MIDAZOLAM HCL 1 MG/ML 2ML VIAL ONE (07:10)
[2024-10-30] MEDS ORDERED: SUGAMMADEX SODIUM 200 MG/2 ML VIAL IV ONE (07:14)
[2024-10-30] MEDS ORDERED: PROPOFOL IV EMULSION 10 MG/ML 100 ML VIAL IV ONE ×2 (07:14→12:47)
[2024-10-30] MEDS ORDERED: KETAMINE HCL 10MG/ML SYR ONE (07:16)
[2024-10-30] MEDS ORDERED: DexMEDEtomidine HCL IV 100 MCG/ML VIAL IV ONE (07:20)
[2024-10-30] MEDS ORDERED: REMIFENTANIL HCL 1 MG VIAL IV ONE ×2 (07:23→12:46)
[2024-10-30] MEDS ORDERED: SUCCINYLCHOLINE 100MG/5ML SYR IV ONE (07:39)
--- NOTE | 2024-10-30 09:37 | History & Physical Bridge Note ---
Date of Service October 30, 2024 History & Physical Bridge Note I have examined the patient, reviewed the History & Physical and in the interval since the performance of the History & Physical I have noted the following changes of clinical significance: no changes noted Plan for L2-Sacrum/Pelvis Instrumented fusion, Lumbar decompression with navigation.
--- NOTE | 2024-10-30 09:50 | Anesthesiology Consultation ---
Date of Service October 30, 2024 Assessment & Plan ASA ASA3 Proposed Anesthesia Anesthesia Type: General Risk / Benefits Reviewed With: PT / POA / Parent / Guardian, Accepts Plan and Informed Consent Obtained History Surgery Operation Date: 10/27/24 07:30 Proposed Procedures p L2-L3, L3-L4, L5-S1 Oblique Lumbar Interbody Fusion, - Flash Silva MD s Spinal Cord Monitoring - Raúl William MD Operation Date: 10/30/24 09:30 Proposed Procedures p L2-Pelvis Instrumental Fusion, L2,L3,L4,L5 Lamine[address] Navigation, Spinal Cord Monitoring - Flash Silva MD Operation Date: 11/03/24 07:30 Proposed Procedures p Extensive Spine Exposure - Francisco J Bejarano DO s L2-3, L3-4, L5-S1 Oblique Lumbar Interbody Fusion Spinal Cord Monitoring - Flash Silva MD Operation Date: 11/06/24 07:30 Proposed Procedures p L2-Pelvis Instrumental Fusion, L2,L3,L4,L5 Lamine[address] Navigation and Spinal Cord Monitoring - Flash Silva MD Height/Weight Height: 5 ft 10 in Weight: 93.5 kg Allergies Allergy/AdvReac Type Severity Reaction Status Date / Time No Known Drug Allergies Allergy Verified 10/27/24 06:05 Medications Home Medications Medication Instructions Recorded Confirmed Last Taken multivitamin (Daily Multi-Vitamin 1 tab PO QAM 08/01/18 10/27/24 10/19/24 tablet) acetaminophen 500 mg tablet 1,000 mg PO Q8 PRN Pain 08/02/20 10/27/24 10/27/24 05:00 (Tylenol Extra Strength) 500 mg po cholecalciferol (vitamin D3) 50 50 mcg PO QAM 10/21/20 10/27/24 10/26/24 08:00 mcg (2,000 unit) capsule lisinopril 10 mg tablet 10 mg PO QAM #90 tabs 01/26/24 10/27/24 10/26/24 08:00 polyethylene glycol 3350 17 17 g PO DAILY PRN Constipation 06/05/24 10/27/24 10/25/24 gram/dose oral powder (Miralax) celecoxib 100 mg capsule 100 mg PO BID #180 caps 07/14/24 10/27/24 10/19/24 cyclobenzaprine 5 mg tablet 5 mg PO BID PRN muscle spasm #60 08/07/24 10/27/24 Unknown tabs gabapentin 300 mg capsule 300 mg PO .COMPLEX #90 caps 08/10/24 10/27/24 10/26/24 20:00 aspirin 81 mg tablet,delayed 81 mg PO DAILY PRN Pain 10/05/24 10/27/24 10/19/24 release finasteride 5 mg tablet 5 mg PO QAM 10/05/24 10/27/24 10/26/24 08:00 magnesium 200 mg tablet 200 mg PO HS 10/05/24 10/27/24 10/26/24 20:00 melatonin 5 mg tablet 5 mg PO HS PRN Sleep 10/05/24 10/27/24 10/26/24 20:00 10 mg pantoprazole 40 mg tablet,delayed 40 mg PO QAM 10/05/24 10/27/24 10/27/24 05:00 release (Protonix) tamsulosin 0.4 mg capsule 0.4 mg PO HS 10/05/24 10/27/24 10/26/24 20:00 Active Medications Generic Name Dose Route Start Last Admin Trade Name Freq PRN Reason Stop Dose Admin Acetaminophen 1,000 mg 10/27/24 14:54 10/29/24 20:49 Acetaminophen 500 Mg Tab PO 11/26/24 14:53 1,000 mg Q8 PRN Administration Pain Finasteride 5 mg 10/28/24 09:00 10/30/24 07:57 Finasteride 5 Mg Tab PO 11/27/24 08:59 5 mg QAM ALIDA Administration Gabapentin 300 mg 10/27/24 14:54 10/30/24 07:57 Gabapentin 300 Mg Cap PO 11/26/24 14:53 300 mg TID ALIDA Administration Hydromorphone HCl 1 mg 10/27/24 14:54 10/30/24 06:15 Hydromorphone Inj 1 Mg/Ml Syringe IV 11/10/24 14:53 1 mg Q3H PRN Administration SEVERE Pain (7,8,9,10) Promethazine HCl 12.5 mg in 50.5 mls @ 202 mls/hr 10/27/24 14:54 10/29/24 18:47 Phenergan IV 11/26/24 14:53 Infused Q6H PRN Infusion Nausea And Vomiting Magnesium Oxide 400 mg 10/27/24 21:00 10/29/24 20:50 Magnesium Oxide 400 Mg Tab PO 11/26/24 20:59 400 mg HS ALIDA Administration Ondansetron HCl 4 mg 10/27/24 14:54 10/30/24 06:15 Ondansetron Inj 2 Mg/Ml 2 Ml Vial IV 11/26/24 14:53 4 mg Q6H PRN Administration Nausea &/or Vomiting Ondansetron HCl 4 mg 10/27/24 14:54 10/29/24 16:53 Ondansetron 4 Mg Od Tab PO 11/26/24 14:53 4 mg Q6H PRN Administration Nausea Oxycodone HCl 5 - 10 mg 10/27/24 14:54 10/29/24 18:32 Oxycodone Hcl Ir 5 Mg Tab (Immediate Release) PO 11/10/24 14:53 10 mg Q4H PRN Administration MOD/SEV Pain & Pre PT Pantoprazole Sodium 40 mg 10/28/24 09:00 10/30/24 07:57 Pantoprazole 40 Mg Tab PO 11/27/24 08:59 40 mg QAM ALIDA Administration Polyethylene Glycol 17 gm 10/28/24 06:00 10/30/24 05:43 Polyethylene (Miralax) 17 Gm Pack PO 11/27/24 05:59 Not Given Q6 ALIDA Senna/Docusate Sodium 2 tab 10/27/24 21:00 10/29/24 20:49 Docusate Sodium/Senna 50/8.6mg Tab PO 11/26/24 20:59 2 tab HS ALIDA Administration Tamsulosin HCl 0.4 mg 10/27/24 21:00 10/29/24 20:50 Tamsulosin Hcl 0.4 Mg Cap PO 11/26/24 20:59 0.4 mg HS ALIDA Administration Vitamin D 50 mcg 10/28/24 09:00 10/30/24 07:57 Cholecalciferol 25 Mcg (1000 Units) Tab PO 11/27/24 08:59 50 mcg QAM ALIDA Administration NPO Date Last Intake of Fluids: 10/29/24 Time Last Intake of Fluids: 19:00 Date Last Intake of Solids: 10/29/24 Time Last Intake of Solids: 19:00 Past Medical History Medical History History of cervical fracture BPH (benign prostatic hyperplasia) History of skin cancer Hypertension Hepatic steatosis (~02/06/23) Splenomegaly (~02/06/23) Esophageal dysphagia Cervicogenic headache History of benign thyroid tumor History of colon polyps Acid reflux Arthritis Cerebellar artery occlusion Exercise / Class Metabolic Activity II 4-5 Yardwork/Stairs/Walk up hill Past Family History Family History Father Bladder cancer Brother Brain malignant neoplasm Sister Breast cancer Mother Osteoporosis Other No family history of adverse response to anesthesia Denies family history of Ovarian cancer Prostate cancer Diabetes Myocardial infarction Lung cancer Colorectal cancer Stroke Past Surgical History Surgical History H/O prostate biopsy History of esophagogastroduodenoscopy (EGD) History of tooth extraction Hx of parathyroidectomy History of right knee joint replacement History of colonoscopy History of laparoscopic cholecystectomy H/O inguinal hernia repair H/O total knee replacement Past Anesthesia History No Hx of Anesthesia Complications and No Family Hx of Anesthesia Complications History of PONV No Hx of PONV and No Hx of Motion Sickness Social History Smoking Status: Never smoker Do You Dip or Chew Tobacco: No Hx Alcohol Use: No Alcohol type: beer, wine and hard liquor alcohol intake frequency: holidays/special occasions only substance use type: does not use Review of Systems denies fever/cough/ colds/ chest pain/ SOB/ ERNA denies ERNA Physical Exam Vital Signs Last Vital Signs Temp 36.7 C 10/30/24 09:32 Pulse 111 H 10/30/24 09:32 Resp 18 10/30/24 09:32 BP 136/113 H 10/30/24 09:32 Pulse Ox 94 10/30/24 09:32 O2 Del Method Room Air 10/30/24 09:32 O2 Flow Rate 1 10/27/24 19:08 ENMT Mouth: no TMJ abnormality and no dentition abnormality Thyromental Distance: > or= 3.5 Finger Breadths Mallampati Class: II Neck neck extension not limited Respiratory normal respiratory effort; no respiratory distress Auscultation: lungs clear to auscultation bilaterally Cardiovascular Rate/Rhythm: regular rhythm and + tachycardic; + abnormal rate Neurologic moves all extremities Psychiatric Orientation: alert and oriented x 3 Testing Laboratory Results 10/30/24 06:12 10/30/24 06:12 Blood Type O Negative 10/30/24 06:12 Antibody Screen NEGATIVE 10/30/24 06:12 Electrocardiogram Date: 10/10/24 NSR, rate 83 bpm Cervical Spine Date: 08/23/24 No acute fracture or traumatic subluxation. Stable trace anterolisthesis at C5-6 No definite cord compression, cord signal abnormality or cord expansion identified Multilevel degenerative changes again seen with varying degrees of canal and bilateral foraminal stenosis, mildly progressed when compared to prior. Canal stenosis is most pronounced at C6-7. No focal disc protrusion identified Heterogeneous thyroid with multiple T2 hyperintense nodules, largest in the left lobe measuring up to 1.1 cm Other Testing Chest CT 12/20/23 1. No acute intrathoracic abnormality. 2. No lymphadenopathy. 3. Stable 9 mm subpleural nodule within the right lower lobe, unchanged from 02/05/2023
[2024-10-30] MEDS ORDERED: ATROPINE SULFATE 0.1 MG/ML 10ML SYR IV PRN (09:52)
[2024-10-30] MEDS ORDERED: PROMETHAZINE HCL 6.25 MG in SODIUM CHLORIDE 0.9% 50 ML IV PRN (09:52)
[2024-10-30] MEDS ORDERED: diphenhydrAMINE 50 MG/ML VIAL ONE (10:29)
[2024-10-30] MEDS ORDERED: DROPERIDOL 5 MG/2 ML VIAL ONE (10:29)
[2024-10-30] MEDS ORDERED: HYDROmorphone INJ 2 MG/ML SYR/VIAL ONE (11:57)
[2024-10-30] MEDS: VANCOMYCIN HCL 1000MG/20ML VIAL ONE ×2 (12:12→15:12)
--- NOTE | 2024-10-30 15:07 | Fluoroscopy Report ---
FL spine 1V any level CLINICAL HISTORY: L2-L5 LAMINECTOMIES, L2-PELVIS INSTRUMENTAL FUSION COMPARISON STUDY: 10/29/2024 FLUOROSCOPY TIME: 5 seconds FLUOROSCOPY IMAGES: 6 EXPOSURE DOSE: 3 mGy FINDINGS: Fluoroscopy was provided for lumbar surgery. IMPRESSION: Intraoperative fluoroscopy. ACT 112: Negative or not required by law. Electronically signed by: Jacky Patten M.D. 10/30/2024 3:05 PM
[2024-10-30] MEDS: BUPIVACAINE 0.5 % 5 MG/1 ML MPF 30ML VIAL ONE (15:12)
[2024-10-30] MEDS: FLOSEAL HEMOSTATIC MATRIX 10ML TOP ONE (15:14)
--- NOTE | 2024-10-30 15:44 | Post Operative Brief Note ---
PG Immediate Post Op with CF Date of Surgery October 30, 2024 Pre & Post Diagnosis Lumbar Spondylosis Lumbr Spondylolisthesis Lumbar Radiculopathy I identified the patient and participated in the time-out.: Yes Procedure Operation Date: 11/06/24 07:30 Posterior Lumbar Fusion L2-S1 Posterior Segmental Instrumentation L2-S1 Instrumentation of Pelvis Lumbar Laminectomy L2-3 Surgeon Flash Silva MD Electrical Products Sales Engineer Elmer Hathaway Estimated Blood Loss 300 Findings Consistent with Post-Op Diagnosis Specimens Specimen Description: No specimen per surgeon Drains Lopez Catheter (Lopez present on arrival to the OR; Stat lock removed and leg strap applied) Anesthesia Type General Complications none Disposition Disposition: Recovery Room
[2024-10-30] MEDS: ONDANSETRON INJ 2 MG/ML 2 ML VIAL IV PRN (15:57)
--- NOTE | 2024-10-30 16:04 | Operative Report ---
PG Post Operative Report Pre & Post Diagnosis Lumbar spondylolisthesis Lumbar stenosis with neurogenic claudication Lumbar radiculopathy Lumbar spondylolosis I identified the patient and participated in the time-out.: Yes Procedure Posterior lumbar fusion L2-3 () Posterior lumbar fusion L3-4 () Posterior lumbar fusion L4-5 () Posterior lumbar fusion L5-S1 (18283) Posterior segmental instrumentation L2-S1 (84345) Instrumentation of the pelvis ([id number]) Lumbar laminectomy with medial facetectomy L2-3 (20617) Allograft for spinal fusion Stereotactic CT guided navigation for pedicle screws (54869) Instrumentation : Nuvasive Reline Surgeon Flash Silva MD Hospital Scientist Elmer Hathaway Estimated Blood Loss 300 Findings Consistent with Post-Op Diagnosis Specimens None Drains None Anesthesia Type General Complications none Disposition Disposition: Recovery Room Indications This is the second stage of planned two-stage procedure. Patient underwent anterior lumbar interbody fusion from L2-S1 2 days ago. He has recovered well over the weekend, he reported excellent relief of radicular pain following an anterior interbody. Patient will go for posterior instrumentation and stabilization as well as decompression as needed. Description of Procedure Patient was brought to the operating room where general placed. He was placed in the prone position on the Kane prepped and draped in the usual sterile verbal timeout performed identifying the patient by name date of verified. Preoperative fluoroscopy was used to approximate skin incision over the L2-3 level. The skin was incised over the L2 spinous process. Subperiosteal dissection was carried out to expose the L3 lamina and spinous, the spinous process was removed with a Leksell rongeur. The L2 lamina was further, the ligamentum flavum was intact and very soft. Eliseo elevator was used to protect it. There was considerable from the L2-3 facet, these were undercut medially with a Kerrison rongeur. The central thecal sac as well as the traversing L3 nerves were now completely hemostasis was obtained with bipolar cautery and Floseal. No dural tear, I was easily able to pass a Meredith probe into the bilateral L2-3 foramen as well as along the lateral recess. A small navigation frame was then to the patient's PSIS. The Iceberg O-arm was brought into the intraoperative CT lumbar spine. Images were uploaded to the [employer] navigation unit for intraoperative navigated placement of pedicle screw instrumentation. Using the navigated probe I marked skin for pedicle screws placement at L2, L3, L4, L5 and S1 bilaterally. The skin was incised and a Rosa approach was performed percutaneously. Using navigation I located the L2-3, L3-4 L4-5 and L5-S1 facet. Sequential dilation was used. NuVasive to expose the facet joints bilaterally, these were decorticated with a navigated bur and packed with allograft to encourage posterolateral fusion at these levels. Using a navigated awl I cannulated the tract at the L2, L3, L4, L5 and S1 pedicles bilaterally. Using stereotactic navigation and intraoperative measurements, pedicle screws of the correct size were then placed into the pedicles of L2-S1 bilaterally. All pedicle screws were then stimulated by neuromonitoring with no evidence of breach. Then began instrumentation pelvis. I identified the sacral ala between the S1 and S2 foramen, using a navigated awl I cannulated a tract across the lateral sacral ala, across the sacroiliac joint, into the ilium of the pelvis bilaterally. I then used navigation to place 2.5 mm diameter iliac bolts across the sacral ala, crossing the SI joint, into the ilium of the pelvis bilaterally. Lumbar rods were then bent and placed within the tulip heads of the lumbar screws and pelvis screws bilaterally. Reduction towers used to place the setscrews which were then fired all tightened. The LUMO [employer] O-arm was brought back into the operating room, repeat CTs and was performed of the instrumentation which was displaced. These images were uploaded to the in room viewer and I verified the final position of all instrumentation. The lateral incisions were then irrigated and closed in layers. STRATAFIX suture was used in the fascial layer. Running 2 oh STRATAFIX suture was used to close the subcutaneous layer, arely were used in the skin. I then closed the old central laminectomy incision using oh strata fix in the fascia, interrupted 2-0 Vicryl in the subcutaneous layer and a running Monocryl in the skin. A Prineo dressing was applied over the laminectomy defect. Navigation pin site was also closed using arely. Vancomycin was added to all wound edges prior to skin closure for infection prophylaxis. Sterile dressing was placed, the patient was awakened from anesthesia and taken to PACU in stable condition. I attest to the content of the Intraoperative Record and any orders documented therein. Any exceptions are noted below.
[2024-10-30] MEDS: HYDROmorphone INJ 2 MG/ML SYR/VIAL IV PRN (16:18)
--- NOTE | 2024-10-30 17:26 | Anesthesiology Progress Note ---
Date of Service October 30, 2024 Anesthesia Post Procedure Vital Signs Vital Signs: Temp Pulse Pulse Resp BP Pulse Ox O2 Del Method 10/30/24 17:20 36.5 C 110 H 14 135/86 92 Nasal Cannula 10/30/24 16:55 105 H 16 154/94 H 94 Nasal Cannula 10/30/24 16:45 36.8 C 108 H 18 152/98 H 94 Nasal Cannula 10/30/24 16:35 110 H 12 133/92 95 Nasal Cannula 10/30/24 16:25 100 H 14 143/98 H 97 Oxymask 10/30/24 16:15 99 H 14 119/99 97 Oxymask 10/30/24 16:05 97 H 12 133/87 97 Oxymask 10/30/24 15:55 106 H 20 129/96 96 Oxymask 10/30/24 15:45 100 H 12 122/87 98 Oxymask 10/30/24 15:37 36 C L 100 H 12 136/106 H 92 Oxymask 10/30/24 09:32 36.7 C 111 H 18 136/113 H 94 Room Air 10/30/24 07:52 36.8 C 100 H 16 127/83 93 Room Air 10/30/24 07:45 Room Air 10/29/24 23:01 37.3 C 108 H 18 137/83 92 Room Air O2 Flow Rate 10/30/24 17:20 3 10/30/24 16:55 3 10/30/24 16:45 3 10/30/24 16:35 3 10/30/24 16:25 3 10/30/24 16:15 4 10/30/24 16:05 6 10/30/24 15:55 6 10/30/24 15:45 8 10/30/24 15:37 10 10/30/24 09:32 10/30/24 07:52 10/30/24 07:45 10/29/24 23:01 Pain Intensity Lower Back: Pain Intensity: 9 Left Abdomen: Pain Intensity: 4 Back: Pain Intensity: 5 Transfer of Care Handoff Completed per policy Notes Mental Status: alert / awake / arousable and participated in evaluation Patient Amnestic to Procedure: Yes Nausea / Vomiting: adequately controlled Pain: adequately controlled Airway Patency, RR, SpO2: stable & adequate BP & HR: stable & adequate Hydration State: stable & adequate Anesthetic Complications: no major complications apparent
[2024-10-30] MEDS: LACTATED RINGER'S 1,000 ML IV SCH ×2 (18:09→18:12)
[2024-10-30] MEDS: KETOROLAC 30 MG/ML VIAL IV SCH (18:18)
[2024-10-31 06:30] LABS: Hematocrit (blood only) 34.3 % (42.0-52.0); Hemoglobin 12.3 g/dl (14.0-18.0); Immature Granulocytes # (auto) 0.09 K/uL (0.01-0.20); Immature Granulocytes % (auto) 0.7 %; Mean Corpuscular Hemoglobin 28.7 pg (25.0-34.0); Mean Corpuscular Volume 80.1 fL (80.0-100.0); Platelet Count 205 K/uL (130-400); RDW Standard Deviation 35.0 fL (36.4-46.3); Red Blood Count 4.28 M/uL (4.70-6.10); White Blood Count 12.50 K/ul (4.8-10.8)
[2024-10-31 06:53] LABS: Anion Gap 5.0 (3-11); Blood Urea Nitrogen 19.0 mg/dl (6-23); Calcium 8.3 mg/dl (8.6-10.3); Carbon Dioxide 29.0 mmol/L (21-32); Chloride 99.0 mmol/L (98-107); Creatinine Clr Calc Pharmacy 101.7 ml/min; Glucose 130.0 mg/dl (70-99(Fasting)); Potassium 4.0 mmol/L (3.5-5.1); Sodium 133.0 mmol/L (136-145)
--- NOTE | 2024-10-31 14:53 | XRay Report ---
XR lumbar spine 2-3V CLINICAL HISTORY: post-op spine surgery COMPARISON STUDY: 10/29/2024 FINDINGS: Posterior metallic fusion and interbody devices from L2 through the sacrum shows no hardwar e complication. There is minimal anterolisthesis of L1 on 2 and L2 on 3. No fracture seen. Skin stapl es are present. IMPRESSION: Postoperative exam with no acute findings. ACT 112: Negative or not required by law. Electronically signed by: Jacky Patten M.D. 10/31/2024 2:52 PM
--- NOTE | 2024-10-31 16:26 | Orthopedic Progress Note ---
Date of Service October 31, 2024 Assessment & Plan (1) S/P lumbar fusion: Mobilization with physical therapy Encouraged ambulation, SCDs for DVT prophylaxis Pain controlled with p.o. oxycodone as needed, muscle relaxer as needed Bowel regimen Dressing change tomorrow X-rays today reviewed instrumentation in good position. (2) Acute blood loss anemia: Patient's vital signs are within acceptable limits, expected blood loss from extensive spine surgery, will continue to monitor morning labs and clinical exam (3) Lumbar spondylosis: Subjective Patient is postoperative day 1 status post staged anterior posterior lumbar fusion. He does endorse posterior lumbar pain at the surgical site from yesterday, anterior incisional pain is improving. No neurologic symptoms, no neurologic deficits. He is tolerating p.o. diet. He reports he is passing flatus, no bowel movement yet. Overall he is recovering as expected. Review of Systems All systems reviewed & are unremarkable except as noted in HPI & below. Physical Exam Anterior dressings clean dry and intact Posterior dressings are also clean dry and intact, Lopez catheter in place 5 out of 5 strength bilateral lower extremity, no fixed neurologic deficits. Results & Data Results & Data Laboratory Results . Diagnostic Findings . PG Care Time/CCT Total # of Minutes Spent Total Time Spent with Patient: Total time spent is greater than 50% in coordination of care (as documented) at patient's floor/unit and/or counseling patient: Coding Level of Care Code 55105 Post Operative Follow-Up Diagnoses S/P lumbar fusion Z98.1 Acute blood loss anemia D62 Lumbar spondylosis M47.816
--- NOTE | 2024-10-31 19:34 | Hospitalist Progress Note ---
Date of Service October 31, 2024 Assessment & Plan (1) Hypertension: (2) Hyperlipidemia: (3) Spinal stenosis of lumbar region: (4) Acid reflux: (5) BPH (benign prostatic hyperplasia): (6) Lumbar radiculopathy: Plan 10/29 no change to medications Spinal stenosis with lumbar radiculopathy s/p OLIF 10/27, planned staged operation with return to the OR on Wednesday VTE and pain management per primary ortho spine - discussed with Dr Silva and will add scheduled acetaminophen Sinus tachycardia suspect related to his pain and post operative state, hemoglobin stable Not concerning but please notify medical team if sustained HR > 120 BPH Continue finasteride Hypertension Ok to restart lisinopril, continue as long as no dizziness on standing VTE Prophylaxis and disposition - per primary orthopedics team Admission and Anticipated Discharge Date Admission Date: October 27, 2024 Subjective Having back pain from operation yesterday. Seen with Dr Silva. Patient reports radicular pain resolved. Physical Exam Constitutional: WD/WN, vitals as above Respiratory: normal respiratory effort; no respiratory distress Neurologic: moves all extremities and awake; not confused normal ankle dorsi/plantar flexion Results & Data Results & Data Vital Signs (Past 12 Hours) Vital Signs Temp Pulse Resp BP Pulse Ox O2 Del Method 10/31/24 19:03 36.8 C 107 H 20 106/68 98 Room Air 10/31/24 14:59 36.4 C L 110 H 18 110/71 95 Room Air 10/31/24 11:31 36.6 C 95 H 18 120/79 93 Room Air PG Care Time/CCT Total # of Minutes Spent Total Time Spent with Patient: Total time spent is greater than 50% in coordination of care (as documented) at patient's floor/unit and/or counseling patient: Coding Level of Care Code 83676 SUB INP/OBS CARE 2/35MIN Diagnoses Hypertension I10 Hyperlipidemia E78.5 Spinal stenosis of lumbar region, unspecified whether neurogenic claudication present M48.061 Neurogenic claudication status: unspecified Acid reflux K21.9 BPH (benign prostatic hyperplasia) N40.0 Lumbar radiculopathy M54.16 (3) Spinal stenosis of lumbar region Neurogenic claudication status: unspecified Qualified Code(s): M48.061 - Spinal stenosis, lumbar region without neurogenic claudication
[2024-10-31 22:28] VITALS: RESP 16
[2024-11-01 06:52] LABS: Hematocrit (blood only) 31.7 % (42.0-52.0); Hemoglobin 11.1 g/dl (14.0-18.0); Immature Granulocytes # (auto) 0.10 K/uL (0.01-0.20); Immature Granulocytes % (auto) 0.8 %; Mean Corpuscular Hemoglobin 27.8 pg (25.0-34.0); Mean Corpuscular Volume 79.3 fL (80.0-100.0); Platelet Count 209 K/uL (130-400); RDW Standard Deviation 34.8 fL (36.4-46.3); Red Blood Count 4.00 M/uL (4.70-6.10); White Blood Count 12.96 K/ul (4.8-10.8)
[2024-11-01] MEDS: METOPROLOL TARTRATE 25 MG TAB PO SCH (08:48)
--- NOTE | 2024-11-01 09:57 | Orthopedic Progress Note ---
Date of Service November 01, 2024 Assessment & Plan (1) S/P lumbar fusion: * Continue Current Treatment * S/p L2-3, L3-4, L5-S1 Oblique Lumbar Interbody Fusion, L2-Pelvis Instrumental Fusion with CT Navigation * Weight bearing status: WBAT * Progressing with PT, ambulating in room and down hernandez * Bowel movement this morning, passing flatus * Dressings changed today * Daily treatment: Physical Therapy/ Occupational Therapy per protocol * Pain control * Continue to monitor for ABLA * Disposition: home * Office/hospital f/u 2 weeks for progress check and staple/suture removal * Stable for discharge, plan for this afternoon (2) Acute blood loss anemia: Patient's vital signs are within acceptable limits, expected blood loss from extensive spine surgery, will continue to monitor morning labs and clinical exam (3) Lumbar spondylosis: Subjective .Active Problems: S/p L2-3, L3-4, L5-S1 Oblique Lumbar Interbody Fusion, L2- Pelvis Instrumental Fusion with CT Navigation POD 2 74 y/o male s/p L2-3, L3-4, L5-S1 Oblique Lumbar Interbody Fusion, L2-Pelvis Instrumental Fusion with CT Navigation. Doing well overall, pain managed and improved function. Denies fever/chills, chest pain/SOB, nausea/vomiting. Otherwise no complaints. Large bowel movement earlier this morning. Review of Systems All systems reviewed & are unremarkable except as noted in HPI & below. Physical Exam * General: Alert and oriented, no acute distress * Constitutional: well-developed, well-nourished. * Respiratory: Normal respiratory effort, no distress * Gastrointestinal: No tenderness to palpation, no rigidity or guarding. * Skin: No rash or lesion. * Neurologic: Grossly normal * Musculoskeletal: Anterior surgical dressing CDI, posterior dressing with moderate saturation. Lumbar spine region without obvious deformity or overlying skin changes. Minimal tenderness of surgical region, otherwise no tenderness b/l buttock or LE. Lumbar flexion/extension and rotation ROM with minimal pain. AROM b/l hip flexion, knee flexion/extension, ankle flexion/extension intact. Sensation intact plantar/dorsal foot. Brisk capillary refill. Results & Data Results & Data Laboratory Results . Diagnostic Findings . PG Care Time/CCT Total # of Minutes Spent Total Time Spent with Patient: Total time spent is greater than 50% in coordination of care (as documented) at patient's floor/unit and/or counseling patient: Coding Level of Care Code 14676 Post Operative Follow-Up Diagnoses S/P lumbar fusion Z98.1 Acute blood loss anemia D62 Lumbar spondylosis M47.816
[2024-11-01 10:14] LABS: Thyroid Stimulating Hormone 1.527 uIu/ml (0.300-4.500)
--- NOTE | 2024-11-01 11:06 | Hospitalist Progress Note ---
Date of Service November 01, 2024 Assessment & Plan (1) Lumbar radiculopathy: Plan: Due to lumbar degenerative disease and stenosis. Postoperative day #2 after lumbar fusion procedure. Management per primary team (2) Sinus tachycardia: Plan: Persistent. Mild. Lisinopril switched to metoprolol to tartrate 25 mg twice daily. Thyroid profile is unremarkable. Continued telemetry (3) Hypertension: Plan: Lisinopril switched to metoprolol. (4) Hyperlipidemia: Plan: Stable. Continue current medical management Plan Eventual discharge to home per primary service Admission and Anticipated Discharge Date Admission Date: October 27, 2024 Subjective Alert and oriented. is at the bedside. Persistent sinus tachycardia noted. No previous cardiac history. Lisinopril has been switched to metoprolol to tartrate 25 mg twice daily. Thyroid profile is unremarkable. Postoperative day #2 after lumbar fusion. Eventual discharge per primary service Review of Systems 2 Review of Systems: Constitutionalno fever or chills ENTno blurred vision, no double vision, no epistaxis, no sore throat Respiratoryno cough, no wheezing, no shortness of breath Cardiacno palpitations, no chest pain, no syncope Zoraida nausea, vomiting, diarrhea, melena, hematochezia GUno urinary retention, no urinary incontinence, no dysuria, no hematuria Musculoskeletalpostoperative lumbar discomfort as expected Skinno bruising, no rashes, no pruritus Neurono isolated weakness, no paresthesia, no weakness Psychno depression, no anxiety Physical Exam 2 Physical Exam: General-alert and oriented x3, no fever, no chills HEENT-head atraumatic and normocephalic, pupils equal and reactive to light, extraocular muscles intact Neck-no lymphadenopathy or thyromegaly, trachea midline Chest-clear to auscultation. No rales, wheezing or rhonchi Cardiac-mildly tachycardic regular rhythm. Normal S1 and S2 Abdomen-normal bowel sounds, no hepatosplenomegaly Extremities-no cyanosis, clubbing, or edema Neuro-cranial nerves II through XII intact, motor and sensory function within normal limits, strength symmetrical, no focal deficits Psych-normal affect, normal mood Results & Data Results & Data Vital Signs (Past 12 Hours) Vital Signs Temp Pulse Resp BP Pulse Ox O2 Del Method 11/01/24 08:01 36.6 C 105 H 148/83 H 93 Room Air 11/01/24 03:00 36.7 C 106 H 16 123/75 92 Room Air Laboratory Results 11/01/24 06:31 10/31/24 05:55 PG Care Time/CCT Total # of Minutes Spent Total Time Spent with Patient: Total time spent is greater than 50% in coordination of care (as documented) at patient's floor/unit and/or counseling patient: Coding Level of Care Code 57225 SUB INP/OBS CARE 3/50MIN Diagnoses Lumbar radiculopathy M54.16 Sinus tachycardia R00.0 Hypertension I10 Hyperlipidemia E78.5
[2024-11-01 11:51] VITALS: BP 126/77; PULSE 95; TEMP 97.5; O2SAT 94
--- NOTE | 2024-11-01 13:22 | Discharge Summary ---
Date of Service November 01, 2024 Principal Diagnosis Same as "Discharge Diagnosis" noted below under Discharge Instructions. Discharge Exam * General: Alert and oriented, no acute distress * Constitutional: well-developed, well-nourished. * Respiratory: Normal respiratory effort, no distress * Gastrointestinal: No tenderness to palpation, no rigidity or guarding. * Skin: No rash or lesion. * Neurologic: Grossly normal * Musculoskeletal: Anterior surgical dressing CDI, posterior dressing with moderate saturation. Lumbar spine region without obvious deformity or overlying skin changes. Minimal tenderness of surgical region, otherwise no tenderness b/l buttock or LE. Lumbar flexion/extension and rotation ROM with minimal pain. AROM b/l hip flexion, knee flexion/extension, ankle flexion/extension intact. Sensation intact plantar/dorsal foot. Brisk capillary refill. Discharge Data Consultations 10/27/24 14:54 Consult Hospitalist Routine Procedures Performed Operation Date: 11/06/24 07:30 <No data on this case meets the specified criteria> Ordered Studies 10/27/24 07:30 FL lumbar spine 2-3V Routine 10/30/24 09:30 CT lumbar spine wo con Routine FL spine 1V any level Routine Hospital Course (1) Acute blood loss anemia: (2) S/P lumbar fusion: (3) Lumbar spondylosis: (4) Lumbosacral spondylosis with radiculopathy: (5) Spondylolisthesis, lumbar region: Plan Patient was admitted postoperatively for pain control and mobilization with physical therapy. They worked with physical therapy and met all goals. Pain was controlled with IV pain medication and transitioned to oral medications. Normal return of bowel and bladder function. They worked with physical therapy, vital signs were acceptable, no need for transfusion, deemed safe for discharge. Patient was evaluated by hospital medicine postoperatively, blood pressure medication was changed from lisinopril to metoprolol for sinus tachycardia. PG Care Time/CCT Total # of Minutes Spent Total Time Spent with Patient: Total time spent is greater than 50% in coordination of care (as documented) at patient's floor/unit and/or counseling patient: Discharge Plan Discharge Items Patient Disposition: Home - Home Health Services Reason For Visit: Spondylolisthesis Lumbar Region, Lumbar Radiculopa Discharge Diagnosis: s/p L2-3, L3-4, L4-5, L5-S1 Oblique Lumbar Interbody Fusion, L2-Pelvis Inst rumental Fusion with CT Navigation Condition on Discharge: Good Activity: Per Instructions section Lifting: No more than 5 pounds Bathing Comment: follow instruction sheet from office Exercise/Sports: None Driving/Machine Use: will determine in office Weightbearing: Full weightbearing Non-emergency contact: Surgeon Call non-emergency contact if: your symptoms worsen, your temperature is above 101.5, your wound has increased redness and your wound has increased drainage Follow-up/Referrals: Antwon Farmer DO [Primary Care Provider] - 11/09/24 9:30 am Diet: Regular Addtl Attending Provider Instructions: Instructions for FUSION Spine Surgery DO NOT TAKE ANY ANTI-INFLAMMATORY MEDICATIONS (MOTRIN, ALEVE, MOBIC, ETC.) IF YOU HAVE UNDERGONE A LUMBAR, THORACIC, OR CERVICAL FUSION DO NOT TAKE ANY HERBAL SUPPLEMENTS MEDICATIONS: You will be given prescriptions for the following: Oxycodone, Percocet or Hydrocodone - For breakthrough pain. Cyclobenzaprine (Flexeril), Valium (Diazepam), Tizanidine (Zanaflex), or Methocarbamol (Robaxin) For muscle spasms and back pain. Take these medications as needed. They will help the most during your recovery time. Senna-s and Miralax Senna-S twice daily, 17g packet of Miralax with water once daily while taking narcotics. These medications prevent constipation caused by the pain medications. Ondansetron (Zofran) For nausea. Cephalexin (Keflex) or Sulfamethoxazole/trimethoprim (Bactrim). Antibiotic. You are given IV antibiotics while in the hospital; you may or may not be given a prescription for home; this will be decided after surgery. Your pre-surgery prescription medications With the exception of anti- inflammatory medications, blood thinners (Coumadin, Plavix, Eliquis, Pradaxa, etc.), or narcotic pain medications, you may resume your home medications. For the above medications, you will be given specific instructions; you may resume blood thinners 3-4 days after surgery. ACTIVITIES: Walking Walking is mandatory. You need to walk at least once every hour while awake. Walking will help prevent blood clots in your legs and help prevent spasms in your back. Bending/twisting Limit bending at the waist, limit twisting and turning. You will be taught to "log roll" to get out of bed. Avoid athletic activities until further notice. Lifting Do NOT lift more than 5 lbs until further notice. Driving You may drive when you are no longer taking narcotic pain medications, can safely operate the brake/gas/clutch pedals, and can move your head/neck for visibility. Tobacco All tobacco products are strictly prohibited after surgery. Any use will dramatically increase your risk of complications. This includes vapor cigarettes, marijuana, nicotine patches and gums. Bracing/Cervical Collar There is no brace required for thoracic or lumbar surgery. If you have had a single level cervical fusion, you will be given a soft collar for comfort. Multiple level cervical fusions will receive a hard collar to be worn at all times, except for showering and hygiene, until follow up in clinic. Surgical Dressing Initial operative dressing is to stay on for 2 days; you may change it if it becomes saturated. From then on, change the dressing daily with dry gauze and paper tape. Continue to change dressing until there is no discharge. Once there is no discharge on the dressing, you may leave the incision open to air but make sure to keep it out of the sun. For supplies, stop by any local pharmacy. Any type of gauze dressing is acceptable. Do not put any ointments on the wound. You may shower 48 hours after your surgery. Cover the incision with Saran Wrap and tape the edges to prevent water from contacting the incision. If water con tacts the incision, pat dry. No baths or submerging the incision until seen in the clinic at follow up appointment. Next Appointment: If you do not already have one made, you will need to schedule an appointment to see Dr. Silva about 2 weeks after surgery. To schedule, please call [phone]. QUESTIONS Please contact the office with questions or concerns: [phone] If outside normal business hours, you will be connected with the on-call physician. Pending Studies at Discharge: No Stand-Alone Forms: My [employer], Smoking Cessation Medications and DC Order Prescriptions: New cefadroxil 500 mg capsule 500 mg PO BID Qty: 20 0RF oxycodone 5 mg tablet 5 mg PO Q6H PRN (Reason: pain) Qty: 30 0RF Senokot Extra Strength 17.2 mg tablet 17.2 mg PO HS PRN (Reason: constipation) Qty: 14 0RF polyethylene glycol 3350 [Miralax] 17 gram Powder In Packet 17 g PO DAILY PRN (Reason: constipation) Qty: 14 0RF cyclobenzaprine 10 mg Tablet 10 mg PO Q8H PRN (Reason: muscle spasm) 30 Days Qty: 90 0RF Continued lisinopril 10 mg tablet 10 mg PO QAM Qty: 90 3RF celecoxib 100 mg capsule 100 mg PO BID Qty: 180 3RF multivitamin [Daily Multi-Vitamin] tablet 1 tab PO QAM cholecalciferol (vitamin D3) 50 mcg (2,000 unit) capsule 50 mcg PO QAM polyethylene glycol 3350 [Miralax] 17 gram/dose powder 17 g PO DAILY PRN (Reason: Constipation) gabapentin 300 mg capsule 300 mg PO .COMPLEX Qty: 90 1RF Patient Comments: 300mg at hs now Rx Instructions: Start with one capsule at night for 2-3 days, if incomplete relief increase to one capsule at night and one in AM for another 2-3 days, if needed increase to one capsule three times daily. If adverse side effects, decrease medication by one capsule every three days until off. acetaminophen [Tylenol Extra Strength] 500 mg tablet 1,000 mg PO Q8 PRN (Reason: Pain) tamsulosin 0.4 mg capsule 0.4 mg PO HS pantoprazole [Protonix] 40 mg tablet,delayed release (DR/EC) 40 mg PO QAM finasteride 5 mg tablet 5 mg PO QAM magnesium 200 mg Tablet 200 mg PO HS melatonin 5 mg Tablet 5 mg PO HS PRN (Reason: Sleep) Discontinued cyclobenzaprine 5 mg tablet 5 mg PO BID PRN (Reason: muscle spasm) Qty: 60 2RF aspirin 81 mg tablet,delayed release (DR/EC) 81 mg PO DAILY PRN (Reason: Pain) Discharge Orders: Discharge Order (Routine); Ordered 11/01/24 Ordered By: Elmer Morocho Admission Data Admit Date/Time: 10/27/24 07:41 Attending Provider: Flash Silva Admit Provider: Flash Silva Primary Care Provider: Antwon Farmer Other Providers: IRB Approved Study,Inge; Leonard Mckinnon; [facility]
== END 2024-11-01 14:39 | disposition home health service (06) | DRG 427 ==
LOC: ASU 05:55 → 3E 07:41